=== PATIENT | female | born 1955 | race African-American/Black ===

== ENCOUNTER 2016-12-25 12:16 | Emergency (ER) | payer OTHER ==
[~2016-12-25] VITALS: Ht 165.1 cm; Wt 51.0 kg
[~2016-12-25 12:16] MED LIST: ALBUTEROL INH; ASPI-1073 PO; ATEN-42 PO; GABA-531 PO; MELO-58 PO; PHEN300C6 PO; QVAR INH; SIMV20TA6 PO
[2016-12-25 12:24] VITALS: BP 123/77
[2016-12-25] MEDS ORDERED: KETOROLAC 60MG/2ML VIAL IM ONE (13:45)
[2016-12-25] MEDS ORDERED: TETANUS, DIPHTHERIA, PERTUSSIS VAC/PF 0.5ML (>7YR OLD) IM ONE (16:45)
== END 2016-12-25 18:12 | disposition home or self-care (01) ==
LOC: ER 12:16
DX: S92.515A Nondisplaced fracture of proximal phalanx of left lesser toe(s), initial encounter for closed fracture (principal); S91.112A Laceration without foreign body of left great toe without damage to nail, initial encounter; I11.9 Hypertensive heart disease without heart failure; E78.00 Pure hypercholesterolemia, unspecified; Z79.82 Long term (current) use of aspirin; Z79.899 Other long term (current) drug therapy; Z86.73 Personal history of transient ischemic attack (TIA), and cerebral infarction without residual deficits; Z98.890 Other specified postprocedural states; W01.0XXA Fall on same level from slipping, tripping and stumbling without subsequent striking against object, initial encounter; Y93.01 Activity, walking, marching and hiking; Y92.89 Other specified places as the place of occurrence of the external cause; Y99.8 Other external cause status
CPT/HCPCS: 12002; 73630; 90471; 90715; 96372; 99284; J1885

== ENCOUNTER 2017-01-03 10:00 | Emergency (ER) | payer MEDICAID, OTHER ==
[~2017-01-03] VITALS: Ht 165.1 cm; Wt 96.5 kg
[2017-01-03 12:02] LABS: BASOPHILS % 0.5 % (0.0-2.0); EOSINOPHILS % 5.2 % (0.0-5.0); HEMATOCRIT. 35.7 % (36.0-48.0); HEMOGLOBIN. 11.9 g/dL (12.0-16.0); LYMPHOCYTES % 39.4 % (20.0-50.0); MEAN CORPUSCULAR HEMOGLOBIN 29.7 pg (28.0-32.0); MEAN CORPUSCULAR HGB CONC 33.2 g/dL (31.0-37.0); MEAN CORPUSCULAR VOLUME 89.3 fL (81.0-99.0); MEAN PLATELET VOLUME 7.7 fl (7.4-10.4); MONOCYTES % 7.6 % (2.0-8.0); NEUTROPHILS % 47.3 % (40.0-76.0); PLATELET 270 x1000/uL (130-400); RED CELL DISTRIBUTION WIDTH 13.8 % (11.6-14.6); WHITE BLOOD COUNT 8.5 x1000/uL (4.5-11.0)
[2017-01-03 12:09] LABS: CHLORIDE 106 mEq/L (98-107); INDEX HEMOLYSI 1 (1-3); INDEX ICTERIC 1 (1-4); INDEX LIPEMIC 1 (1-3)
[2017-01-03 12:12] LABS: INR 0.9; PARTIAL THROMBOPLASTIN TIME 27.5 sec (24.0-34.0); PROTHROMBIN TIME 9.7 sec
[2017-01-03 12:17] LABS: ALANINE AMINOTRANSFERASE 22 IU/L (13-61); ALBUMIN 3.5 g/dL (3.4-5.0); ANION GAP 15; CALCIUM 9.5 mg/dL (8.5-10.1); CARBON DIOXIDE 26 mEq/L (21-32); LIPASE 157 IU/L (73-393); UREA NITROGEN BLOOD 11 mg/dL (7-21); eGFR > 60 mL/min (>60)
[2017-01-03 12:18] LABS: TROPONIN I < 0.02 ng/mL (0.00-0.04)
[2017-01-03 13:49] VITALS: BP 122/80
== END 2017-01-03 14:03 | disposition home or self-care (01) ==
LOC: ER 11:02
DX: S91.115D Laceration without foreign body of left lesser toe(s) without damage to nail, subsequent encounter (principal); I11.0 Hypertensive heart disease with heart failure; I50.9 Heart failure, unspecified; E78.00 Pure hypercholesterolemia, unspecified; Z95.818 Presence of other cardiac implants and grafts; Z79.1 Long term (current) use of non-steroidal anti-inflammatories (NSAID); Z79.899 Other long term (current) drug therapy; W22.8XXD Striking against or struck by other objects, subsequent encounter; Y93.89 Activity, other specified; Y92.9 Unspecified place or not applicable; Y99.8 Other external cause status
CPT/HCPCS: 36415; 71010; 80053; 83690; 84484; 85025; 85610; 85730; 93005; 99285; Z7610

== ENCOUNTER 2017-04-03 22:22 | Inpatient (IN) | payer OTHER ==
[~2017-04-03] VITALS: Ht 165.1 cm; Wt 114.3 kg
[~2017-04-03 22:22] MED LIST changes: +LEVO88TA7 PO
[2017-04-04] VITALS (30 sets, daily range): BP systolic 95–152; BP diastolic 49–102
[2017-04-04] MEDS ORDERED: SODIUM CHLORIDE 0.9% 1,000 ML IV ONE ×2 (01:08→02:16)
[2017-04-04 01:58] LABS: HEMATOCRIT. 37.7 % (36.0-48.0); HEMOGLOBIN. 12.6 g/dL (12.0-16.0); MEAN CORPUSCULAR HEMOGLOBIN 31.1 pg (28.0-32.0); MEAN CORPUSCULAR VOLUME 93.4 fL (81.0-99.0); MEAN PLATELET VOLUME 6.9 fl (7.4-10.4); PLATELET 311 x1000/uL (130-400); RED BLOOD CELL COUNT 4.04 mill/uL (4.2-5.4); RED CELL DISTRIBUTION WIDTH 15.8 % (11.6-14.6)
[2017-04-04 02:10] LABS: CARBON DIOXIDE 13 mEq/L (21-32); CHLORIDE 94 mEq/L (98-107); TROPONIN I < 0.02 ng/mL (0.00-0.04)
[2017-04-04] MEDS ORDERED: DEXTROSE 50% WATER 50ML SYRINGE IV ONE ×2 (02:30→08:00)
[2017-04-04] MEDS ORDERED: SODIUM POLYSTYRENE SULFONATE 15 G/60 ML BOT PO ONE (02:30)
[2017-04-04] MEDS ORDERED: INSULIN REGULAR (HUMULIN R) 300UNITS/3ML IV ONE ×2 (02:30→08:00)
[2017-04-04] MEDS ORDERED: CALCIUM CHLORIDE 1GM/10ML SYR IV ONE ×2 (02:30→08:00)
[2017-04-04] MEDS ORDERED: SODIUM BICARBONATE 8.4% 1 MEQ/ML 50ML SYR IV ONE ×2 (02:30→08:00)
[2017-04-04] MEDS ORDERED: PIPERACILLIN/TAZ 3.375G PREMIX 50 ML IV ONE (03:00)
[2017-04-04] MEDS ORDERED: VANCOMYCIN 1 G PREMIX 200 ML IV ONE (03:00)
[2017-04-04 03:21] LABS: PLATELET ESTIMATE NORMAL
[2017-04-04 04:34] LABS: PARTIAL THROMBOPLASTIN TIME 26.6 sec (24.0-34.0); PROTHROMBIN TIME 10.4 sec
[2017-04-04 06:55] LABS: CLARITY URINE CLEAR (CLEAR); COLOR URINE YELLOW (YELLOW); GLUCOSE URINE NEGATIVE (NEGATIVE); KETONES URINE NEGATIVE (NEGATIVE); LEUKOCYTE ESTERASE URINE TRACE (NEGATIVE); NITRITE URINE NEGATIVE (NEGATIVE); OCCULT BLOOD URINE 2+ (NEGATIVE); PROTEIN URINE NEGATIVE (NEGATIVE); SPECIFIC GRAVITY URINE 1.019 (1.005-1.030); UROBILINOGEN URINE 0.2 E.U./dL (0.2-1.0)
[2017-04-04] MEDS ORDERED: DOCUSATE SODIUM 100MG CAPSULE PO PRN (10:45)
[2017-04-04] MEDS ORDERED: HYDROCODONE/ACETAMINOPHEN 5/325MG TABLET PO PRN (10:45)
[2017-04-04] MEDS ORDERED: IPRATROPIUM/ALBUTEROL 0.5-3(2.5)MG/3ML NEB INH PRN (10:45)
[2017-04-04] MEDS ORDERED: ONDANSETRON HCL 4MG/2ML VIAL IV PRN (10:45)
[2017-04-04 12:08] LABS: PHENYTOIN 8.7 ug/mL (10-20)
[2017-04-04 12:28] LABS: BG BASE EXCESS -7.5 mmol/L (-2.0-2.0); BG CARBOXYHEMOGLOBIN 0.9 % (0.5-1.5); BG DEOXYHEMOGLOBIN 3.1 % (0.0-5.0); BG FRACTION INSPIRED OXYGEN 32; BG HCO3 ACT 18.4 mmol/L (22.0-26.0); BG METHEMOGLOBIN 0.3 % (0.0-1.5); BG OXYGEN SATURATION 96.9 % (92.0-98.5); BG OXYHEMOGLOBIN 95.7 % (94.0-97.0); BG PCO2 38.6 mmHg (35.0-45.0); BG PH 7.295 (7.350-7.450); BG SAMPLE SITE LEFT BRACHIAL; BG TOTAL HEMOGLOBIN 12.1 g/dL (12.0-18.0); BG VENT MODE NASAL CANNULA
[2017-04-04 14:54] LABS: AMMONIA < 10 uMol/L (<32)
[2017-04-04] MEDS: PHENYTOIN SODIUM 100MG/2ML VIAL IV SCH ×2 (15:04→21:12)
[2017-04-04] MEDS: LACTULOSE 20G/30ML UDC PO SCH ×2 (15:04→17:43)
[2017-04-04] MEDS: ASPIRIN 81MG EC TABLET PO SCH (15:05)
[2017-04-04] MEDS: LEVOTHYROXINE SODIUM 88MCG TABLET PO SCH (15:06)
[2017-04-04] MEDS: ATENOLOL 25MG TABLET PO SCH (15:07)
[2017-04-04 15:08] LABS: CREATINE KINASE 400 IU/L (26-192); CREATINE KINASE MB FRACTION 13.3 ng/mL (0.5-3.6); T4 FREE 0.64 ng/dL (0.76-1.46); TROPONIN I < 0.02 ng/mL (0.00-0.04)
[2017-04-04] MEDS: ENOXAPARIN 100MG/ML SYR SUBCUT SCH (15:08)
[2017-04-04 15:22] LABS: FOLIC ACID (FOLATE) SERUM 5.6 ng/mL (>5.38)
[2017-04-04] MEDS: GABAPENTIN 300MG CAPSULE PO SCH (17:42)
[2017-04-04 23:21] LABS: CREATINE KINASE 315 IU/L (26-192); CREATINE KINASE MB FRACTION 8.7 ng/mL (0.5-3.6); TROPONIN I < 0.02 ng/mL (0.00-0.04)
[2017-04-05] VITALS (19 sets, daily range): BP systolic 91–125; BP diastolic 47–66
[2017-04-05 05:42] LABS: BASOPHILS % 0.4 % (0.0-2.0); EOSINOPHILS % 3.5 % (0.0-5.0); HEMATOCRIT. 33.2 % (36.0-48.0); HEMOGLOBIN. 11.2 g/dL (12.0-16.0); LYMPHOCYTES % 14.7 % (20.0-50.0); MEAN CORPUSCULAR HEMOGLOBIN 31.2 pg (28.0-32.0); MEAN CORPUSCULAR VOLUME 92.5 fL (81.0-99.0); MEAN PLATELET VOLUME 6.9 fl (7.4-10.4); MONOCYTES % 13.4 % (2.0-8.0); PLATELET 220 x1000/uL (130-400); RED BLOOD CELL COUNT 3.59 mill/uL (4.2-5.4); RED CELL DISTRIBUTION WIDTH 15.8 % (11.6-14.6)
[2017-04-05 06:16] LABS: CARBON DIOXIDE 29 mEq/L (21-32); CHLORIDE 108 mEq/L (98-107)
[2017-04-05] MEDS: ASPIRIN 81MG EC TABLET PO SCH (08:52)
[2017-04-05] MEDS: LEVOTHYROXINE SODIUM 88MCG TABLET PO SCH (08:52)
[2017-04-05] MEDS: GABAPENTIN 300MG CAPSULE PO SCH ×2 (08:52→16:30)
[2017-04-05] MEDS: LACTULOSE 20G/30ML UDC PO SCH ×3 (08:52→16:30)
[2017-04-05] MEDS: PHENYTOIN SODIUM 100MG/2ML VIAL IV SCH ×2 (08:53→21:19)
[2017-04-05] MEDS: ATENOLOL 25MG TABLET PO SCH (08:54)
[2017-04-05] MEDS ORDERED: ASPIRIN 81MG EC TABLET PO SCH (09:00)
[2017-04-05] MEDS ORDERED: POTASSIUM CHLORIDE 20MEQ TABLET SR PO SCH (09:15)
[2017-04-05] MEDS: ENOXAPARIN 100MG/ML SYR SUBCUT SCH (11:57)
[2017-04-05] MEDS ORDERED: NA PHOS,M-B/NA PHOS,DI-BA ENEMA 118ML PR NR (16:15)
[2017-04-05] MEDS: BISACODYL 10MG SUPP PR SCH (17:15)
[2017-04-06] VITALS: BP 138/60
[2017-04-06 04:00] VITALS: BP 101/57
[2017-04-06] MEDS: ACETAMINOPHEN 325MG TABLET PO PRN (04:48)
[2017-04-06] MEDS: LEVOTHYROXINE SODIUM 88MCG TABLET PO SCH (06:50)
[2017-04-06 07:25] LABS: CARBON DIOXIDE 32 mEq/L (21-32); CHLORIDE 108 mEq/L (98-107); PHENYTOIN 12.4 ug/mL (10-20); PHOSPHORUS 1.7 mg/dL (2.5-4.9)
[2017-04-06 08:00] VITALS: BP 102/50
[2017-04-06] MEDS: GABAPENTIN 300MG CAPSULE PO SCH ×3 (09:00→17:44)
[2017-04-06] MEDS: BISACODYL 10MG SUPP PR SCH (09:00)
[2017-04-06] MEDS: LACTULOSE 20G/30ML UDC PO SCH ×3 (09:01→17:44)
[2017-04-06] MEDS: ASPIRIN 81MG EC TABLET PO SCH (09:01)
[2017-04-06] MEDS: ATENOLOL 25MG TABLET PO SCH (09:06)
[2017-04-06] MEDS: PHENYTOIN SODIUM 100MG/2ML VIAL IV SCH (09:06)
[2017-04-06 10:54] LABS: BASOPHILS % 0.4 % (0.0-2.0); EOSINOPHILS % 11.6 % (0.0-5.0); HEMATOCRIT. 25.7 % (36.0-48.0); HEMOGLOBIN. 8.7 g/dL (12.0-16.0); LYMPHOCYTES % 26.3 % (20.0-50.0); MEAN CORPUSCULAR HEMOGLOBIN 31.3 pg (28.0-32.0); MEAN CORPUSCULAR VOLUME 92.4 fL (81.0-99.0); MONOCYTES % 10.1 % (2.0-8.0); NEUTROPHILS % 51.6 % (40.0-76.0); PLATELET 192 x1000/uL (130-400); RED BLOOD CELL COUNT 2.78 mill/uL (4.2-5.4); RED CELL DISTRIBUTION WIDTH 15.8 % (11.6-14.6)
[2017-04-06] MEDS ORDERED: POTASSIUM CHLORIDE 20MEQ TABLET SR PO SCH (11:30)
[2017-04-06] MEDS ORDERED: MAGNESIUM 1 G PREMIX 100 ML IV ONE (11:30)
[2017-04-06] MEDS: PHENYTOIN SODIUM EXTENDED 100MG CAPSULE PO SCH ×2 (11:47→17:44)
[2017-04-06] MEDS: ENOXAPARIN 100MG/ML SYR SUBCUT SCH (11:48)
[2017-04-06 12:00] VITALS: BP 110/71
[2017-04-06 16:00] VITALS: BP 114/58
[2017-04-06] MEDS: AZITHROMYCIN 500 MG in DEXT 5% WATER 250 ML IV SCH (17:44)
[2017-04-06] MEDS: ASCORBIC ACID 500 MG TABLET PO SCH (17:44)
[2017-04-06] MEDS: CEFTRIAXONE 1 G PREMIX 50 ML IV SCH (17:44)
[2017-04-06] MEDS: MULTIVITAMINS,THER W-MINERALS TABLET PO SCH (17:44)
[2017-04-06 20:00] VITALS: BP 105/55
[2017-04-07] VITALS: BP 121/66
[2017-04-07] MEDS: ACETAMINOPHEN 325MG TABLET PO PRN ×2 (03:59→20:58)
[2017-04-07 04:00] VITALS: BP 121/61
[2017-04-07] MEDS: PHENYTOIN SODIUM EXTENDED 100MG CAPSULE PO SCH ×2 (06:00→17:12)
[2017-04-07] MEDS: LEVOTHYROXINE SODIUM 88MCG TABLET PO SCH (06:32)
[2017-04-07 06:53] LABS: BASOPHILS % 0.3 % (0.0-2.0); EOSINOPHILS % 12.2 % (0.0-5.0); HEMOGLOBIN. 8.4 g/dL (12.0-16.0); LYMPHOCYTES % 26.7 % (20.0-50.0); MEAN CORPUSCULAR VOLUME 92.7 fL (81.0-99.0); MEAN PLATELET VOLUME 6.7 fl (7.4-10.4); MONOCYTES % 8.2 % (2.0-8.0); NEUTROPHILS % 52.6 % (40.0-76.0); PLATELET 196 x1000/uL (130-400); RED CELL DISTRIBUTION WIDTH 15.6 % (11.6-14.6)
[2017-04-07 07:49] VITALS: BP 113/58
[2017-04-07 07:55] LABS: CARBON DIOXIDE 33 mEq/L (21-32); CHLORIDE 105 mEq/L (98-107); PHOSPHORUS 1.8 mg/dL (2.5-4.9)
[2017-04-07] MEDS: ASCORBIC ACID 500 MG TABLET PO SCH (08:23)
[2017-04-07] MEDS: LACTULOSE 20G/30ML UDC PO SCH ×3 (08:23→17:11)
[2017-04-07] MEDS: MULTIVITAMINS,THER W-MINERALS TABLET PO SCH (08:23)
[2017-04-07] MEDS: CEFTRIAXONE 1 G PREMIX 50 ML IV SCH (08:23)
[2017-04-07] MEDS: ASPIRIN 81MG EC TABLET PO SCH (08:23)
[2017-04-07] MEDS: ATENOLOL 25MG TABLET PO SCH (08:24)
[2017-04-07] MEDS: GABAPENTIN 300MG CAPSULE PO SCH ×2 (08:42→17:12)
[2017-04-07] MEDS: AZITHROMYCIN 500 MG in DEXT 5% WATER 250 ML IV SCH (09:34)
[2017-04-07] MEDS: BISACODYL 10MG SUPP PR SCH (09:34)
[2017-04-07] MEDS ORDERED: POTASSIUM CHLORIDE 20MEQ TABLET SR PO SCH (10:00)
[2017-04-07] MEDS ORDERED: POTASSIUM PHOS,M-BASIC-D-BASIC 10 MMOL in DEXT 5% WATER 246.6667 ML IV SCH (11:00)
[2017-04-07 11:29] LABS: TOTAL IRON BINDING CAPACITY 124 ug/dL (250-450)
[2017-04-07 11:57] VITALS: BP 112/61
[2017-04-07] MEDS: ENOXAPARIN 100MG/ML SYR SUBCUT SCH (12:36)
[2017-04-07 12:41] LABS: BG CARBOXYHEMOGLOBIN 0.4 % (0.5-1.5); BG DEOXYHEMOGLOBIN 10.4 % (0.0-5.0); BG FRACTION INSPIRED OXYGEN 21; BG HCO3 ACT 27.1 mmol/L (22.0-26.0); BG METHEMOGLOBIN 0.2 % (0.0-1.5); BG OXYGEN SATURATION 89.5 % (92.0-98.5); BG PH 7.459 (7.350-7.450); BG PO2 57.5 mmHg (75.0-100.0); BG SAMPLE SITE RIGHT RADIAL; BG TOTAL HEMOGLOBIN 9.4 g/dL (12.0-18.0); BG VENT MODE ROOM AIR
[2017-04-07 16:00] VITALS: BP 120/61
[2017-04-07 20:00] VITALS: BP 106/55
[2017-04-08] VITALS: BP 100/52
[2017-04-08 04:00] VITALS: BP 110/52
[2017-04-08 06:20] LABS: CARBON DIOXIDE 29 mEq/L (21-32); CHLORIDE 104 mEq/L (98-107); PHOSPHORUS 2.3 mg/dL (2.5-4.9)
[2017-04-08 06:21] LABS: BASOPHILS % 0.3 % (0.0-2.0); EOSINOPHILS % 12.1 % (0.0-5.0); HEMATOCRIT. 26.4 % (36.0-48.0); HEMOGLOBIN. 8.9 g/dL (12.0-16.0); LYMPHOCYTES % 29.9 % (20.0-50.0); MEAN CORPUSCULAR HEMOGLOBIN 31.2 pg (28.0-32.0); MEAN CORPUSCULAR VOLUME 92.1 fL (81.0-99.0); MONOCYTES % 8.4 % (2.0-8.0); NEUTROPHILS % 49.3 % (40.0-76.0); PLATELET 230 x1000/uL (130-400); RED BLOOD CELL COUNT 2.86 mill/uL (4.2-5.4); RED CELL DISTRIBUTION WIDTH 15.6 % (11.6-14.6)
[2017-04-08] MEDS: PHENYTOIN SODIUM EXTENDED 100MG CAPSULE PO SCH (06:44)
[2017-04-08] MEDS: LEVOTHYROXINE SODIUM 88MCG TABLET PO SCH (06:44)
[2017-04-08 08:00] VITALS: BP 113/68
[2017-04-08] MEDS: LACTULOSE 20G/30ML UDC PO SCH (08:53)
[2017-04-08] MEDS: BISACODYL 10MG SUPP PR SCH (08:53)
[2017-04-08] MEDS: MULTIVITAMINS,THER W-MINERALS TABLET PO SCH (08:58)
[2017-04-08] MEDS: ASPIRIN 81MG EC TABLET PO SCH (08:58)
[2017-04-08] MEDS: ASCORBIC ACID 500 MG TABLET PO SCH (08:58)
[2017-04-08] MEDS: ATENOLOL 25MG TABLET PO SCH (08:58)
[2017-04-08] MEDS: CEFTRIAXONE 1 G PREMIX 50 ML IV SCH (08:58)
[2017-04-08] MEDS: GABAPENTIN 300MG CAPSULE PO SCH (08:58)
[2017-04-08] MEDS ORDERED: ENOXAPARIN 120MG/0.8ML SYR SUBCUT SCH (09:00)
[2017-04-08] MEDS: AZITHROMYCIN 500 MG in DEXT 5% WATER 250 ML IV SCH (10:47)
[2017-04-08 11:39] VITALS: BP 109/63
[2017-04-08] MEDS ORDERED: POTASSIUM PHOS,M-BASIC-D-BASIC 15 MMOL in DEXT 5% WATER 245 ML IV NR (12:30)
[2017-04-08 14:52] VITALS: BP 109/63
== END 2017-04-08 15:20 | disposition home health service (06) | DRG 45 ==
LOC: ER 22:33 → CANRESERV 04-04 06:55 → ENRESERV 04-04 06:55 → EDBEDREQSVC 04-04 07:53 → ENRESERV 04-04 07:55 → CVICU 04-04 10:52 → 8WST 04-05 16:03
PROVIDERS: ADMIT Internal Medicine; ATTEND Internal Medicine
PROC: 05HN33Z Insertion of Infusion Device into Left Internal Jugular Vein, Percutaneous Approach (ICD-10-PCS; 2017-04-04)
PROC: B544ZZA Ultrasonography of Left Jugular Veins, Guidance (ICD-10-PCS; 2017-04-04)
PROC: 05H933Z Insertion of Infusion Device into Right Brachial Vein, Percutaneous Approach (ICD-10-PCS; principal; 2017-04-06)
PROC: B54MZZA Ultrasonography of Right Upper Extremity Veins, Guidance (ICD-10-PCS; 2017-04-06)
PROC: 30233N1 Transfusion of Nonautologous Red Blood Cells into Peripheral Vein, Percutaneous Approach (ICD-10-PCS; 2017-04-06)
DX: I63.9 Cerebral infarction, unspecified (principal); G92 Toxic encephalopathy; N17.9 Acute kidney failure, unspecified; J18.9 Pneumonia, unspecified organism; I82.432 Acute embolism and thrombosis of left popliteal vein; K59.2 Neurogenic bowel, not elsewhere classified; R65.10 Systemic inflammatory response syndrome (SIRS) of non-infectious origin without acute organ dysfunction; E87.5 Hyperkalemia; E86.0 Dehydration; J44.0 Chronic obstructive pulmonary disease with (acute) lower respiratory infection; E11.22 Type 2 diabetes mellitus with diabetic chronic kidney disease; I12.9 Hypertensive chronic kidney disease with stage 1 through stage 4 chronic kidney disease, or unspecified chronic kidney disease; I69.354 Hemiplegia and hemiparesis following cerebral infarction affecting left non-dominant side; E87.1 Hypo-osmolality and hyponatremia; N18.9 Chronic kidney disease, unspecified; G40.909 Epilepsy, unspecified, not intractable, without status epilepticus; N31.9 Neuromuscular dysfunction of bladder, unspecified; E03.9 Hypothyroidism, unspecified; R13.10 Dysphagia, unspecified; N13.9 Obstructive and reflux uropathy, unspecified; E66.01 Morbid (severe) obesity due to excess calories; D64.9 Anemia, unspecified; E83.42 Hypomagnesemia; E78.00 Pure hypercholesterolemia, unspecified; E78.5 Hyperlipidemia, unspecified; E83.39 Other disorders of phosphorus metabolism; E87.6 Hypokalemia; Z79.82 Long term (current) use of aspirin; Z68.41 Body mass index [BMI] 40.0-44.9, adult; Z79.899 Other long term (current) drug therapy; Z82.3 Family history of stroke; Z95.5 Presence of coronary angioplasty implant and graft
CPT/HCPCS: 36415; 36556; 36569; 36600; 51702; 70551; 71010; 72141; 74000; 76770; 76937; 80048; 80053; 80185; 81001; 82140; 82270; 82375; 82550; 82553; 82607; 82746; 82805; 82962; 83036; 83540; 83550; 83605; 83735; 84100; 84439; 84443; 84481; 84484; 85025; 85610; 85730; 87040; 92523; 92610; 93005; 93306; 93970; 96361; 96365; 96366; 96367; 96375; 96376; 97163; 97167; 97530; 99291; C1725; C1752; J0456; J0696; J1165; J1650; J1815; J2543; J3370; J3475; J3490; J7030; J7040; J7050; J7060

== ENCOUNTER 2017-04-13 00:42 | Emergency (ER) | payer OTHER ==
[~2017-04-13] VITALS: Ht 165.1 cm; Wt 95.0 kg
[2017-04-13] MEDS ORDERED: LEVOFLOXACIN 250MG TABLET PO ONE (01:30)
[2017-04-13] MEDS ORDERED: PHENAZOPYRIDINE HCL 100MG TABLET PO ONE (01:30)
[2017-04-13 02:13] LABS: CLARITY URINE CLEAR (CLEAR); COLOR URINE YELLOW (YELLOW); GLUCOSE URINE NEGATIVE (NEGATIVE); KETONES URINE NEGATIVE (NEGATIVE); LEUKOCYTE ESTERASE URINE 2+ (NEGATIVE); NITRITE URINE NEGATIVE (NEGATIVE); OCCULT BLOOD URINE 2+ (NEGATIVE); PROTEIN URINE 1+ (NEGATIVE); SPECIFIC GRAVITY URINE 1.011 (1.005-1.030); UROBILINOGEN URINE 0.2 E.U./dL (0.2-1.0)
[2017-04-13 05:45] VITALS: BP 106/58
== END 2017-04-13 05:57 | disposition home or self-care (01) ==
LOC: ER 00:50
DX: N99.522 Malfunction of incontinent external stoma of urinary tract (principal); T83.011A Breakdown (mechanical) of indwelling urethral catheter, initial encounter; I50.9 Heart failure, unspecified; I12.9 Hypertensive chronic kidney disease with stage 1 through stage 4 chronic kidney disease, or unspecified chronic kidney disease; N18.9 Chronic kidney disease, unspecified; R30.0 Dysuria; Z79.82 Long term (current) use of aspirin
CPT/HCPCS: 51702; 81001; 87086; 99284; Z7610; A4315

== ENCOUNTER 2017-07-01 23:49 | Emergency (ER) | payer OTHER ==
[~2017-07-01] VITALS: Ht 165.1 cm; Wt 96.0 kg
[~2017-07-01 23:49] MED LIST changes: +MELO-106 PO; -MELO-58 PO
[2017-07-02 00:20] VITALS: BP 87/56
[2017-07-02] MEDS ORDERED: MORPHINE SULFATE 10 MG/ML CPJ IV ONE (02:10)
[2017-07-02] MEDS ORDERED: ONDANSETRON HCL 4MG/2ML VIAL IV ONE (02:10)
== END 2017-07-02 03:30 | disposition home or self-care (01) ==
LOC: ER 23:49
DX: R33.9 Retention of urine, unspecified (principal); I50.9 Heart failure, unspecified; Z86.73 Personal history of transient ischemic attack (TIA), and cerebral infarction without residual deficits
CPT/HCPCS: 51702; 99284; Z7610; 99283; A4315

== ENCOUNTER 2017-11-17 11:20 | Emergency (ER) | payer MEDICAID, OTHER ==
[~2017-11-17] VITALS: Ht 152.4 cm; Wt 86.0 kg
[2017-11-17 16:45] LABS: BASOPHILS % 0.7 % (0.0-2.0); EOSINOPHILS % 3.5 % (0.0-5.0); HEMATOCRIT. 34.4 % (36.0-48.0); HEMOGLOBIN. 11.6 g/dL (12.0-16.0); LYMPHOCYTES % 45.3 % (20.0-50.0); MEAN CORPUSCULAR HEMOGLOBIN 31.7 pg (28.0-32.0); MEAN CORPUSCULAR VOLUME 93.9 fL (81.0-99.0); MEAN PLATELET VOLUME 7.3 fl (7.4-10.4); MONOCYTES % 7.9 % (2.0-8.0); NEUTROPHILS % 42.6 % (40.0-76.0); PLATELET 297 x1000/uL (130-400); RED BLOOD CELL COUNT 3.66 mill/uL (4.2-5.4); RED CELL DISTRIBUTION WIDTH 14.9 % (11.6-14.6)
[2017-11-17 16:47] LABS: CHLORIDE 109 mEq/L (98-107)
[2017-11-17 18:57] LABS: CLARITY URINE CLEAR (CLEAR); COLOR URINE YELLOW (YELLOW); KETONES URINE NEGATIVE (NEGATIVE); LEUKOCYTE ESTERASE URINE TRACE (NEGATIVE); NITRITE URINE NEGATIVE (NEGATIVE); OCCULT BLOOD URINE NEGATIVE (NEGATIVE); PH URINE 6.5 (4.5-8.0); PROTEIN URINE NEGATIVE (NEGATIVE); SPECIFIC GRAVITY URINE 1.019 (1.005-1.030)
[2017-11-17] MEDS ORDERED: ACETAMINOPHEN 325MG TABLET PO ONE (19:15)
[2017-11-17 20:00] VITALS: BP 150/68
== END 2017-11-17 20:25 | disposition home or self-care (01) ==
LOC: ER 14:18
DX: M79.604 Pain in right leg (principal); I50.9 Heart failure, unspecified; R42 Dizziness and giddiness; R56.9 Unspecified convulsions; Z79.82 Long term (current) use of aspirin; Z86.73 Personal history of transient ischemic attack (TIA), and cerebral infarction without residual deficits; Z86.718 Personal history of other venous thrombosis and embolism
CPT/HCPCS: 36415; 80053; 81003; 85025; 85610; 93971; 99285

== ENCOUNTER 2018-02-28 10:11 | Emergency (ER) | payer MEDICAID ==
[~2018-02-28] VITALS: Ht 167.6 cm; Wt 95.0 kg
[~2018-02-28 10:11] MED LIST changes: +ATOR10TA PO; +OMEP40CA34 MT; +WARF-53 MT
[2018-02-28 11:53] LABS: BASOPHILS % 0.4 % (0.0-2.0); EOSINOPHILS % 5.2 % (0.0-5.0); HEMATOCRIT. 36.7 % (36.0-48.0); HEMOGLOBIN. 12.6 g/dL (12.0-16.0); LYMPHOCYTES % 37.6 % (20.0-50.0); MEAN CORPUSCULAR HEMOGLOBIN 31.8 pg (28.0-32.0); MEAN CORPUSCULAR VOLUME 92.9 fL (81.0-99.0); MEAN PLATELET VOLUME 7.4 fl (7.4-10.4); MONOCYTES % 7.7 % (2.0-8.0); NEUTROPHILS % 49.1 % (40.0-76.0); PLATELET 268 x1000/uL (130-400); RED BLOOD CELL COUNT 3.95 mill/uL (4.2-5.4); RED CELL DISTRIBUTION WIDTH 13.8 % (11.6-14.6)
[2018-02-28 11:59] LABS: CHLORIDE 104 mEq/L (98-107)
[2018-02-28 12:02] LABS: INR 2.6; PROTHROMBIN TIME 26.7 sec (9.4-11.6)
[2018-02-28 13:22] VITALS: BP 142/76
== END 2018-02-28 13:24 | disposition home or self-care (01) ==
LOC: ER 10:11
DX: R07.89 Other chest pain (principal); K21.9 Gastro-esophageal reflux disease without esophagitis; J44.9 Chronic obstructive pulmonary disease, unspecified; I10 Essential (primary) hypertension; E78.00 Pure hypercholesterolemia, unspecified; G40.909 Epilepsy, unspecified, not intractable, without status epilepticus; Z86.73 Personal history of transient ischemic attack (TIA), and cerebral infarction without residual deficits
CPT/HCPCS: 36415; 71045; 80053; 83880; 84484; 85025; 85610; 85730; 93005; 99285

== ENCOUNTER 2018-03-28 00:28 | Emergency (ER) | payer MEDICAID ==
[~2018-03-28] VITALS: Ht 165.1 cm; Wt 97.0 kg
[2018-03-28] MEDS ORDERED: ASPIRIN 81MG TABLET PO ONE (02:15)
[2018-03-28] MEDS ORDERED: NITROGLYCERIN 0.4MG TABLET SL SL PRN (02:15)
[2018-03-28 02:44] LABS: BASOPHILS % 0.8 % (0.0-2.0); EOSINOPHILS % 5.6 % (0.0-5.0); HEMATOCRIT. 33.4 % (36.0-48.0); HEMOGLOBIN. 11.2 g/dL (12.0-16.0); LYMPHOCYTES % 39.1 % (20.0-50.0); MEAN CORPUSCULAR HEMOGLOBIN 31.6 pg (28.0-32.0); MEAN CORPUSCULAR VOLUME 94.5 fL (81.0-99.0); MEAN PLATELET VOLUME 7.4 fl (7.4-10.4); MONOCYTES % 10.2 % (2.0-8.0); NEUTROPHILS % 44.3 % (40.0-76.0); PLATELET 261 x1000/uL (130-400); RED BLOOD CELL COUNT 3.54 mill/uL (4.2-5.4); RED CELL DISTRIBUTION WIDTH 14.9 % (11.6-14.6)
[2018-03-28 02:45] LABS: CHLORIDE 109 mEq/L (98-107)
[2018-03-28 02:47] LABS: INR 1.1; PARTIAL THROMBOPLASTIN TIME 32.9 sec (23.4-31.0); PROTHROMBIN TIME 11.2 sec (9.4-11.6)
[2018-03-28 05:13] LABS: CLARITY URINE CLEAR (CLEAR); COLOR URINE YELLOW (YELLOW); KETONES URINE TRACE (NEGATIVE); LEUKOCYTE ESTERASE URINE TRACE (NEGATIVE); NITRITE URINE NEGATIVE (NEGATIVE); OCCULT BLOOD URINE NEGATIVE (NEGATIVE); PROTEIN URINE NEGATIVE (NEGATIVE); SPECIFIC GRAVITY URINE 1.025 (1.005-1.030)
[2018-03-28 05:58] VITALS: BP 112/69
== END 2018-03-28 06:06 | disposition home or self-care (01) ==
LOC: ER 01:57 → CANBEDREQ 07:13 → SUPCPDRO 09:52
DX: R07.89 Other chest pain (principal); R60.0 Localized edema; G40.909 Epilepsy, unspecified, not intractable, without status epilepticus; I51.9 Heart disease, unspecified; Z79.82 Long term (current) use of aspirin; Z87.891 Personal history of nicotine dependence; Z86.73 Personal history of transient ischemic attack (TIA), and cerebral infarction without residual deficits
CPT/HCPCS: 36415; 71045; 80053; 81003; 83880; 84484; 85025; 85610; 85730; 93005; 99285; C1893; Z7610

== ENCOUNTER 2018-05-14 12:28 | Emergency (ER) | payer MEDICAID ==
[~2018-05-14] VITALS: Ht 175.3 cm; Wt 96.0 kg
[2018-05-14] MEDS ORDERED: ONDANSETRON HCL 4MG/2ML VIAL IV STA (13:43)
[2018-05-14] MEDS ORDERED: KETOROLAC 30MG/ML VIAL IV STA (13:43)
[2018-05-14] MEDS ORDERED: MORPHINE SULFATE 4 MG/ML CPJ (NOT FOR IM USE) IV STA (13:43)
[2018-05-14] MEDS ORDERED: KETOROLAC 30MG/ML VIAL IM ONE (14:30)
[2018-05-14] MEDS ORDERED: MORPHINE SULFATE 10 MG/ML CPJ IM ONE (14:30)
[2018-05-14 15:12] LABS: BASOPHILS % 0.5 % (0.0-2.0); EOSINOPHILS % 3.6 % (0.0-5.0); HEMATOCRIT. 35.2 % (36.0-48.0); HEMOGLOBIN. 11.9 g/dL (12.0-16.0); LYMPHOCYTES % 34.7 % (20.0-50.0); MEAN CORPUSCULAR HEMOGLOBIN 31.9 pg (28.0-32.0); MEAN CORPUSCULAR VOLUME 94.2 fL (81.0-99.0); MEAN PLATELET VOLUME 7.3 fl (7.4-10.4); MONOCYTES % 7.8 % (2.0-8.0); NEUTROPHILS % 53.4 % (40.0-76.0); PLATELET 282 x1000/uL (130-400); RED BLOOD CELL COUNT 3.73 mill/uL (4.2-5.4); RED CELL DISTRIBUTION WIDTH 15.1 % (11.6-14.6)
[2018-05-14 15:18] LABS: CHLORIDE 107 mEq/L (98-107)
[2018-05-14 15:21] LABS: PARTIAL THROMBOPLASTIN TIME 28.8 sec (23.4-31.0); PROTHROMBIN TIME 10.1 sec (9.1-11.1)
[2018-05-14 17:30] VITALS: BP 130/62
== END 2018-05-14 17:36 | disposition home or self-care (01) ==
LOC: ER 13:16
DX: S93.402A Sprain of unspecified ligament of left ankle, initial encounter (principal); M25.562 Pain in left knee; W01.0XXA Fall on same level from slipping, tripping and stumbling without subsequent striking against object, initial encounter; Y93.89 Activity, other specified; Y92.89 Other specified places as the place of occurrence of the external cause; Z86.73 Personal history of transient ischemic attack (TIA), and cerebral infarction without residual deficits; G40.909 Epilepsy, unspecified, not intractable, without status epilepticus
CPT/HCPCS: 36415; 71045; 73560; 73610; 80053; 80185; 83880; 84484; 85025; 85610; 85730; 93005; 96372; 99285; J1885; J2270; J2405; Z7610

== ENCOUNTER 2018-05-23 08:34 | Inpatient (IN) | payer MEDICAID ==
[~2018-05-23] VITALS: Ht 167.6 cm; Wt 101.2 kg
[2018-05-23] MEDS ORDERED: ASPIRIN 325MG EC TABLET PO ONE (09:15)
[2018-05-23 09:48] LABS: BASOPHILS % 0.5 % (0.0-2.0); EOSINOPHILS % 3.8 % (0.0-5.0); HEMATOCRIT. 37.4 % (36.0-48.0); HEMOGLOBIN. 12.3 g/dL (12.0-16.0); LYMPHOCYTES % 31.9 % (20.0-50.0); MEAN CORPUSCULAR HEMOGLOBIN 31.9 pg (28.0-32.0); MEAN CORPUSCULAR VOLUME 96.6 fL (81.0-99.0); MEAN PLATELET VOLUME 7.4 fl (7.4-10.4); MONOCYTES % 6.9 % (2.0-8.0); NEUTROPHILS % 56.9 % (40.0-76.0); PLATELET 320 x1000/uL (130-400); RED BLOOD CELL COUNT 3.87 mill/uL (4.2-5.4); RED CELL DISTRIBUTION WIDTH 14.6 % (11.6-14.6)
[2018-05-23 09:53] LABS: CHLORIDE 106 mEq/L (98-107)
[2018-05-23 10:00] LABS: D-DIMER 0.21 mg/L FEU (<0.50); PARTIAL THROMBOPLASTIN TIME 31.6 sec (23.4-31.0); PROTHROMBIN TIME 10.1 sec (9.1-11.1)
[2018-05-23] MEDS ORDERED: MORPHINE SULFATE 4 MG/ML CPJ (NOT FOR IM USE) IV STA (12:32)
[2018-05-23 13:44] LABS: CLARITY URINE CLEAR (CLEAR); COLOR URINE YELLOW (YELLOW); KETONES URINE NEGATIVE (NEGATIVE); LEUKOCYTE ESTERASE URINE NEGATIVE (NEGATIVE); NITRITE URINE NEGATIVE (NEGATIVE); OCCULT BLOOD URINE NEGATIVE (NEGATIVE); PH URINE 6.5 (4.5-8.0); PROTEIN URINE NEGATIVE (NEGATIVE); SPECIFIC GRAVITY URINE 1.012 (1.005-1.030); UROBILINOGEN URINE 0.2 E.U./dL (0.2-1.0)
[2018-05-23] MEDS ORDERED: GUAIFENESIN 200MG/10ML SUGAR FREE UDC PO PRN (14:45)
[2018-05-23] MEDS ORDERED: MORPHINE SULFATE 10 MG/ML CPJ IM ONE (14:45)
[2018-05-23] MEDS ORDERED: CLONIDINE 0.1MG TABLET PO PRN (14:45)
[2018-05-23] MEDS ORDERED: DOCUSATE SODIUM 100MG CAPSULE PO PRN (14:45)
[2018-05-23] MEDS ORDERED: ONDANSETRON HCL 4MG/2ML INJ IV PRN (14:45)
[2018-05-23] MEDS ORDERED: HYDROCODONE/ACETAMINOPHEN 5/325MG TABLET PO PRN (14:45)
[2018-05-23] MEDS ORDERED: IOHEXOL-350 100 ML BOTTLE ONE (16:11)
[2018-05-23 21:15] VITALS: BP 108/42
[2018-05-23] MEDS ORDERED: RIVA20TA PO (21:53)
[2018-05-23] MEDS: RIVAROXABAN 20 MG TABLET PO SCH (22:13)
[2018-05-23] MEDS: PHENYTOIN SODIUM EXTENDED 100MG CAPSULE PO SCH (22:13)
[2018-05-23 23:25] VITALS: BP 108/42
[2018-05-23 23:47] VITALS: BP 113/49
[2018-05-23 23:56] LABS: CREATINE KINASE 100 IU/L (26-192); CREATINE KINASE MB FRACTION < 1.0 ng/mL (0.5-3.6)
[2018-05-24 04:03] VITALS: BP 92/45
[2018-05-24 05:45] LABS: BASOPHILS % 0.4 % (0.0-2.0); EOSINOPHILS % 4.1 % (0.0-5.0); HEMATOCRIT. 32.2 % (36.0-48.0); LYMPHOCYTES % 38.8 % (20.0-50.0); MEAN CORPUSCULAR HEMOGLOBIN 32.7 pg (28.0-32.0); MEAN CORPUSCULAR VOLUME 95.3 fL (81.0-99.0); MEAN PLATELET VOLUME 7.8 fl (7.4-10.4); MONOCYTES % 9.2 % (2.0-8.0); NEUTROPHILS % 47.5 % (40.0-76.0); PLATELET 259 x1000/uL (130-400); RED BLOOD CELL COUNT 3.38 mill/uL (4.2-5.4); RED CELL DISTRIBUTION WIDTH 14.5 % (11.6-14.6)
[2018-05-24 06:32] LABS: CHLORIDE 106 mEq/L (98-107)
[2018-05-24 06:46] LABS: CREATINE KINASE 93 IU/L (26-192); HDL CHOLESTEROL 74 mg/dL (40-59); LDL CHOLESTEROL 136 mg/dL (5-100)
[2018-05-24 06:50] LABS: CREATINE KINASE MB FRACTION < 1.0 ng/mL (0.5-3.6)
[2018-05-24] MEDS ORDERED: REGADENOSON 0.4 MG/5 ML IV SCH (07:45)
[2018-05-24 08:00] VITALS: BP 105/51
[2018-05-24] MEDS ORDERED: REGADENOSON 0.4 MG/5 ML IV ONE (10:25)
[2018-05-24 12:00] VITALS: BP 133/66
[2018-05-24] MEDS: PHENYTOIN SODIUM EXTENDED 100MG CAPSULE PO SCH ×2 (13:30→19:12)
[2018-05-24] MEDS: ACETAMINOPHEN 325MG TABLET PO PRN ×2 (13:30→21:48)
[2018-05-24] MEDS: AMLODIPINE 10MG TABLET PO SCH (13:31)
[2018-05-24 14:51] VITALS: BP 160/82
[2018-05-24 16:00] VITALS: BP 107/54
[2018-05-24 16:36] LABS: CREATINE KINASE 94 IU/L (26-192); CREATINE KINASE MB FRACTION < 1.0 ng/mL (0.5-3.6)
[2018-05-24] MEDS: RIVAROXABAN 20 MG TABLET PO SCH (19:16)
[2018-05-24 20:00] VITALS: BP 95/50
[2018-05-24 23:45] LABS: CREATINE KINASE 103 IU/L (26-192)
[2018-05-24 23:46] LABS: CREATINE KINASE MB FRACTION < 1.0 ng/mL (0.5-3.6)
[2018-05-25] VITALS: BP 106/43
[2018-05-25] MEDS: PHENYTOIN SODIUM EXTENDED 100MG CAPSULE PO SCH ×2 (00:18→08:59)
[2018-05-25 04:00] VITALS: BP 96/55
[2018-05-25 06:36] LABS: CREATINE KINASE 93 IU/L (26-192)
[2018-05-25 06:37] LABS: CREATINE KINASE MB FRACTION < 1.0 ng/mL (0.5-3.6)
[2018-05-25 08:00] VITALS: BP 126/64
[2018-05-25] MEDS: AMLODIPINE 10MG TABLET PO SCH (08:59)
[2018-05-25 11:02] VITALS: BP 126/64
[2018-05-25] MEDS ORDERED: ATORVASTATIN CALCIUM 20MG TABLET PO SCH (21:00)
== END 2018-05-25 11:30 | disposition home or self-care (01) | DRG 243 ==
LOC: ER 11:00 → 6WST 12:06 → EDBEDREQ 12:11 → EDBEDREQTM 12:11 → ENRESERV 19:25
PROVIDERS: ADMIT Hospitalist; ATTEND Hospitalist
PROC: 02HV33Z Insertion of Infusion Device into Superior Vena Cava, Percutaneous Approach (ICD-10-PCS; principal; 2018-05-23)
PROC: B5181ZA Fluoroscopy of Superior Vena Cava using Low Osmolar Contrast, Guidance (ICD-10-PCS; 2018-05-23)
PROC: B548ZZA Ultrasonography of Superior Vena Cava, Guidance (ICD-10-PCS; 2018-05-23)
DX: K21.9 Gastro-esophageal reflux disease without esophagitis (principal); E78.5 Hyperlipidemia, unspecified; I10 Essential (primary) hypertension; G40.909 Epilepsy, unspecified, not intractable, without status epilepticus; I25.10 Atherosclerotic heart disease of native coronary artery without angina pectoris; Z79.01 Long term (current) use of anticoagulants; Z86.711 Personal history of pulmonary embolism; Z79.82 Long term (current) use of aspirin; Z79.899 Other long term (current) drug therapy; Z86.73 Personal history of transient ischemic attack (TIA), and cerebral infarction without residual deficits; Z98.1 Arthrodesis status; Z95.5 Presence of coronary angioplasty implant and graft; Z88.5 Allergy status to narcotic agent
CPT/HCPCS: 36415; 36569; 71045; 71275; 76937; 77001; 78452; 80053; 80061; 80185; 81003; 82550; 82553; 83036; 83880; 84439; 84443; 84484; 85025; 85379; 85610; 85730; 93005; 93017; 93306; 93970; 96372; 96374; 96375; 99285; A9500; C1725; C1769; J2270; J2405; J2785; Q9967

== ENCOUNTER 2018-07-28 18:21 | Emergency (ER) | payer MEDICAID ==
[~2018-07-28] VITALS: Ht 162.6 cm; Wt 98.0 kg
[~2018-07-28 18:21] MED LIST changes: -ASPI-1073 PO; -ATEN-42 PO; -MELO-106 PO; +RIVA20TA PO
[2018-07-28 19:20] VITALS: BP 150/71
== END 2018-07-28 19:19 | disposition home or self-care (01) ==
LOC: ER 18:21
DX: L30.9 Dermatitis, unspecified (principal); I10 Essential (primary) hypertension; Z86.73 Personal history of transient ischemic attack (TIA), and cerebral infarction without residual deficits
CPT/HCPCS: 99282

== ENCOUNTER 2018-08-15 07:01 | Emergency (ER) | payer MEDICAID ==
[~2018-08-15] VITALS: Ht 165.1 cm; Wt 100.0 kg
[2018-08-15] MEDS ORDERED: MORPHINE SULFATE 4 MG/ML CPJ (NOT FOR IM USE) IV STA (07:56)
[2018-08-15 08:58] LABS: HEMATOCRIT. 36.8 % (36.0-48.0); HEMOGLOBIN. 12.3 g/dL (12.0-16.0); MEAN CORPUSCULAR HEMOGLOBIN 31.8 pg (28.0-32.0); MEAN CORPUSCULAR VOLUME 95.4 fL (81.0-99.0); MEAN PLATELET VOLUME 7.7 fl (7.4-10.4); PLATELET 294 x1000/uL (130-400); RED BLOOD CELL COUNT 3.86 mill/uL (4.2-5.4); RED CELL DISTRIBUTION WIDTH 13.9 % (11.6-14.6)
[2018-08-15 09:03] LABS: CHLORIDE 108 mEq/L (98-107)
[2018-08-15] MEDS ORDERED: OXYCODONE HCL/ACETAMINOPHEN 5/325MG TABLET PO ONE (09:15)
[2018-08-15] MEDS ORDERED: ASPIRIN 325MG EC TABLET PO ONE (09:30)
[2018-08-15 10:04] LABS: PLATELET ESTIMATE NORMAL
[2018-08-15] MEDS ORDERED: ACETAMINOPHEN 325MG TABLET PO PRN ×2 (11:15→16:45)
[2018-08-15] MEDS ORDERED: KETOROLAC 30MG/ML VIAL IV PRN ×2 (11:15→16:45)
[2018-08-15] MEDS ORDERED: OXYCODONE HCL/ACETAMINOPHEN 5/325MG TABLET PO PRN ×2 (11:15→16:45)
[2018-08-15 11:55] LABS: CREATINE KINASE 136 IU/L (26-192)
[2018-08-15 11:56] LABS: CREATINE KINASE MB FRACTION < 1.0 ng/mL (0.5-3.6)
[2018-08-15 13:05] LABS: CLARITY URINE CLEAR (CLEAR); COLOR URINE YELLOW (YELLOW); KETONES URINE NEGATIVE (NEGATIVE); LEUKOCYTE ESTERASE URINE NEGATIVE (NEGATIVE); NITRITE URINE NEGATIVE (NEGATIVE); OCCULT BLOOD URINE NEGATIVE (NEGATIVE); PROTEIN URINE NEGATIVE (NEGATIVE); SPECIFIC GRAVITY URINE 1.016 (1.005-1.030); UROBILINOGEN URINE 0.2 E.U./dL (0.2-1.0)
[2018-08-15 13:25] LABS: *AMPHETAMINES SCREEN URINE NEGATIVE (NEGATIVE); *BARBITURATES SCREEN URINE NEGATIVE (NEGATIVE)
[2018-08-15 13:26] LABS: *BENZODIAZEPINES SCREEN URINE NEGATIVE (NEGATIVE); *COCAINE SCREEN URINE NEGATIVE (NEGATIVE); CANNABINOID URINE SCREEN NEGATIVE (NEGATIVE); OPIATES URINE SCREEN NEGATIVE (NEGATIVE)
[2018-08-15 13:27] LABS: METHADONE URINE SCREEN NEGATIVE (NEGATIVE); PHENCYCLIDINE URINE SCREEN NEGATIVE (NEGATIVE)
[2018-08-15 15:58] VITALS: BP 128/66
[2018-08-15] MEDS ORDERED: RIVAROXABAN 10 MG TABLET PO SCH ×2 (17:00→17:15)
[2018-08-15] MEDS ORDERED: FAMOTIDINE 20MG TABLET PO SCH ×2 (21:00→21:15)
[2018-08-15] MEDS ORDERED: PHENYTOIN SODIUM EXTENDED 100MG CAPSULE PO SCH ×2 (21:00→21:15)
== END 2018-08-15 16:37 | disposition home or self-care (01) ==
LOC: ER 07:01 → CANRESERV 19:01 → ENRESERV 19:01 → CANBEDREQ 20:16
DX: R07.9 Chest pain, unspecified (principal); I10 Essential (primary) hypertension; Z86.73 Personal history of transient ischemic attack (TIA), and cerebral infarction without residual deficits; Z86.711 Personal history of pulmonary embolism; Z98.890 Other specified postprocedural states; Z79.899 Other long term (current) drug therapy
CPT/HCPCS: 36415; 71045; 80305; 82550; 82553; 83880; 84484; 93005; 99284

== ENCOUNTER 2018-09-28 08:53 | Emergency (ER) | payer MEDICAID ==
[~2018-09-28] VITALS: Ht 165.1 cm; Wt 102.0 kg
[~2018-09-28 08:53] MED LIST changes: -ATOR10TA PO; -WARF-53 MT
[2018-09-28 12:16] LABS: BASOPHILS % 0.5 % (0.0-2.0); EOSINOPHILS % 2.6 % (0.0-5.0); HEMATOCRIT. 36.1 % (36.0-48.0); LYMPHOCYTES % 37.5 % (20.0-50.0); MEAN CORPUSCULAR HEMOGLOBIN 30.9 pg (28.0-32.0); MEAN PLATELET VOLUME 7.8 fl (7.4-10.4); MONOCYTES % 8.3 % (2.0-8.0); NEUTROPHILS % 51.1 % (40.0-76.0); PLATELET 310 x1000/uL (130-400); RED BLOOD CELL COUNT 3.88 mill/uL (4.2-5.4); RED CELL DISTRIBUTION WIDTH 13.9 % (11.6-14.6)
[2018-09-28 12:21] LABS: CHLORIDE 106 mEq/L (98-107)
[2018-09-28 12:25] LABS: D-DIMER 0.2 mg/L FEU (<0.50)
[2018-09-28] MEDS ORDERED: MAGNESIUM/ALUMINUM HYDROXIDE/SIMETHICONE 30ML UDC PO STA (12:29)
[2018-09-28] MEDS ORDERED: VISCOUS LIDOCAINE 2% 15 ML UDC PO STA (12:29)
[2018-09-28 13:08] VITALS: BP 137/63
== END 2018-09-28 13:35 | disposition home or self-care (01) ==
LOC: ER 09:02
DX: R07.89 Other chest pain (principal); Z86.718 Personal history of other venous thrombosis and embolism; Z79.01 Long term (current) use of anticoagulants; G40.909 Epilepsy, unspecified, not intractable, without status epilepticus; Z86.73 Personal history of transient ischemic attack (TIA), and cerebral infarction without residual deficits; Z79.899 Other long term (current) drug therapy
CPT/HCPCS: 36415; 71045; 83880; 84484; 85379; 93005; 99284

== ENCOUNTER 2019-04-16 07:24 | Emergency (ER) | payer MEDICAID ==
[~2019-04-16] VITALS: Ht 162.6 cm; Wt 103.0 kg
[2019-04-16 10:43] VITALS: BP 137/70
[2019-04-16] MEDS ORDERED: IBUPROFEN 400MG TABLET PO ONE (10:45)
== END 2019-04-16 11:04 | disposition home or self-care (01) ==
LOC: ER 07:32
DX: L03.115 Cellulitis of right lower limb (principal); Z79.899 Other long term (current) drug therapy; Z98.1 Arthrodesis status; Z98.890 Other specified postprocedural states; Z86.73 Personal history of transient ischemic attack (TIA), and cerebral infarction without residual deficits
CPT/HCPCS: 93971; 99284

== ENCOUNTER 2019-06-04 06:20 | Emergency (ER) | payer MEDICAID ==
[~2019-06-04] VITALS: Ht 165.1 cm; Wt 101.0 kg
[2019-06-04] MEDS ORDERED: METHYLPREDNISOLONE SOD SUCC 125 MG/2 ML VIAL IV ONE (07:30)
[2019-06-04] MEDS ORDERED: ALBUTEROL (0.083%) 2.5MG/3ML NEB HHN ONE (07:30)
[2019-06-04 08:14] LABS: BASOPHILS % 0.3 % (0.0-2.0); EOSINOPHILS % 2.8 % (0.0-5.0); HEMATOCRIT. 40.7 % (36.0-48.0); HEMOGLOBIN. 13.6 g/dL (12.0-16.0); LYMPHOCYTES % 21.7 % (20.0-50.0); MEAN CORPUSCULAR HEMOGLOBIN 31.5 pg (28.0-32.0); MEAN CORPUSCULAR VOLUME 93.9 fL (81.0-99.0); MEAN PLATELET VOLUME 7.5 fl (7.4-10.4); MONOCYTES % 7.6 % (2.0-8.0); NEUTROPHILS % 67.6 % (40.0-76.0); PLATELET 239 x1000/uL (130-400); RED BLOOD CELL COUNT 4.33 mill/uL (4.2-5.4); RED CELL DISTRIBUTION WIDTH 14.5 % (11.6-14.6)
[2019-06-04 08:18] LABS: CHLORIDE 110 mEq/L (98-107)
[2019-06-04 09:54] VITALS: BP 154/70
== END 2019-06-04 09:55 | disposition home or self-care (01) ==
LOC: ER 07:16
DX: J20.9 Acute bronchitis, unspecified (principal); J44.9 Chronic obstructive pulmonary disease, unspecified; I11.9 Hypertensive heart disease without heart failure; I51.9 Heart disease, unspecified; Z86.73 Personal history of transient ischemic attack (TIA), and cerebral infarction without residual deficits; Z87.891 Personal history of nicotine dependence; Z95.5 Presence of coronary angioplasty implant and graft; Z98.890 Other specified postprocedural states; Z79.899 Other long term (current) drug therapy
CPT/HCPCS: 36415; 71045; 80053; 83880; 84484; 85025; 93005; 94640; 96374; 99284; J2930; J7611; Z7610

== ENCOUNTER 2019-06-16 10:12 | Inpatient (IN) | payer MEDICAID ==
[~2019-06-16] VITALS: Ht 165.1 cm; Wt 106.6 kg
[2019-06-16] MEDS ORDERED: KETOROLAC 60MG/2ML VIAL IM ONE (11:00)
[2019-06-16] MEDS ORDERED: ACETAMINOPHEN 500MG TABLET PO ONE (13:15)
[2019-06-16] MEDS ORDERED: DEXAMETHASONE 10 MG/ML VIAL IV ONE (14:30)
[2019-06-16] MEDS ORDERED: CLONIDINE 0.1MG TABLET PO PRN (16:45)
[2019-06-16] MEDS ORDERED: IPRATROPIUM/ALBUTEROL 0.5-3(2.5)MG/3ML NEB HHN PRN (16:45)
[2019-06-16] MEDS ORDERED: GUAIFENESIN 200MG/10ML SUGAR FREE UDC PO PRN (16:45)
[2019-06-16] MEDS ORDERED: DIPHENHYDRAMINE 50MG/ML VIAL IV PRN (16:45)
[2019-06-16 16:50] LABS: BASOPHILS % 0.4 % (0.0-2.0); EOSINOPHILS % 0.8 % (0.0-5.0); HEMATOCRIT. 39.9 % (36.0-48.0); HEMOGLOBIN. 13.2 g/dL (12.0-16.0); LYMPHOCYTES % 18.6 % (20.0-50.0); MEAN CORPUSCULAR HEMOGLOBIN 30.8 pg (28.0-32.0); MEAN CORPUSCULAR VOLUME 93.3 fL (81.0-99.0); MEAN PLATELET VOLUME 7.5 fl (7.4-10.4); MONOCYTES % 5.1 % (2.0-8.0); NEUTROPHILS % 75.1 % (40.0-76.0); PLATELET 305 x1000/uL (130-400); RED BLOOD CELL COUNT 4.27 mill/uL (4.2-5.4); RED CELL DISTRIBUTION WIDTH 14.4 % (11.6-14.6)
[2019-06-16 16:55] LABS: CHLORIDE 110 mEq/L (98-107)
[2019-06-16 17:00] LABS: PHOSPHORUS 4.2 mg/dL (2.5-4.9)
[2019-06-16 18:10] VITALS: BP 105/54
[2019-06-16] MEDS: HYDROMORPHONE HCL/PF 2MG/ML CPJ IV PRN (19:08)
[2019-06-16 20:00] VITALS: BP 126/69
[2019-06-17] VITALS: BP 105/53
[2019-06-17] MEDS: DEXAMETHASONE 4MG/ML 1ML VIAL IV SCH ×5 (02:55→23:30)
[2019-06-17 04:00] VITALS: BP 139/70
[2019-06-17] MEDS: HYDROMORPHONE HCL/PF 2MG/ML CPJ IV PRN ×2 (08:36→18:21)
[2019-06-17] MEDS ORDERED: PHENYTOIN SODIUM EXTENDED 100MG CAPSULE PO NR (19:45)
[2019-06-17 20:00] VITALS: BP 128/60
[2019-06-17] MEDS: ATORVASTATIN CALCIUM 20MG TABLET PO SCH (20:51)
[2019-06-18] VITALS: BP 102/47
[2019-06-18 00:19] LABS: CLARITY URINE CLOUDY (CLEAR); COLOR URINE YELLOW (YELLOW); KETONES URINE TRACE (NEGATIVE); LEUKOCYTE ESTERASE URINE NEGATIVE (NEGATIVE); NITRITE URINE NEGATIVE (NEGATIVE); OCCULT BLOOD URINE NEGATIVE (NEGATIVE); PH URINE 5.5 (4.5-8.0); PROTEIN URINE NEGATIVE (NEGATIVE); UROBILINOGEN URINE 0.2 E.U./dL (0.2-1.0)
[2019-06-18 04:00] VITALS: BP 118/50
[2019-06-18 05:46] LABS: T4 FREE 1.15 ng/dL (0.76-1.46)
[2019-06-18] MEDS: OMEPRAZOLE 20MG CAPSULE EXTENDED RELEASE PO SCH (06:22)
[2019-06-18] MEDS: GABAPENTIN 300MG CAPSULE PO SCH ×2 (08:17→17:01)
[2019-06-18] MEDS: PHENYTOIN SODIUM EXTENDED 100MG CAPSULE PO SCH ×3 (08:17→21:10)
[2019-06-18] MEDS: HYDROMORPHONE HCL/PF 2MG/ML CPJ IV PRN (08:18)
[2019-06-18] MEDS: ACETAMINOPHEN 325MG TABLET PO PRN (10:37)
[2019-06-18 12:00] VITALS: BP 127/64
[2019-06-18] MEDS ORDERED: POLYETHYLENE GLYCOL 3350 (17GM) 1 DOSE PACK PO SCH (12:30)
[2019-06-18] MEDS ORDERED: DEXT 5%/0.45% NACL 1000ML 1,000 ML IV SCH (12:30)
[2019-06-18 16:00] VITALS: BP 137/67
[2019-06-18 20:00] VITALS: BP 151/67
[2019-06-18] MEDS: ATORVASTATIN CALCIUM 20MG TABLET PO SCH (21:10)
[2019-06-19] VITALS (79 sets, daily range): BP systolic 100–170; BP diastolic 54–108
[2019-06-19] MEDS: PHENYTOIN SODIUM EXTENDED 100MG CAPSULE PO SCH (06:37)
[2019-06-19] MEDS: OMEPRAZOLE 20MG CAPSULE EXTENDED RELEASE PO SCH (06:37)
[2019-06-19 06:52] LABS: BASOPHILS % 0.2 % (0.0-2.0); HEMATOCRIT. 34.8 % (36.0-48.0); HEMOGLOBIN. 11.9 g/dL (12.0-16.0); LYMPHOCYTES % 23.7 % (20.0-50.0); MEAN CORPUSCULAR HEMOGLOBIN 31.2 pg (28.0-32.0); MEAN CORPUSCULAR VOLUME 91.7 fL (81.0-99.0); MEAN PLATELET VOLUME 7.9 fl (7.4-10.4); MONOCYTES % 7.3 % (2.0-8.0); NEUTROPHILS % 68.8 % (40.0-76.0); PLATELET 293 x1000/uL (130-400); RED CELL DISTRIBUTION WIDTH 14.3 % (11.6-14.6)
[2019-06-19 06:59] LABS: CHLORIDE 108 mEq/L (98-107)
[2019-06-19] MEDS ORDERED: NORMAL SALINE 0.9% 10 ML SYR ONE (08:02)
[2019-06-19] MEDS ORDERED: BACITRACIN 15GM TUBE TOP ONE (08:02)
[2019-06-19] MEDS ORDERED: THROMBIN (BOVINE) 5000 UNITS/VIAL TOP ONE (08:02)
[2019-06-19] MEDS ORDERED: BACITRACIN 50,000 UNITS/VIAL ONE (08:03)
[2019-06-19] MEDS ORDERED: SODIUM CHLORIDE 0.9% 2,000 ML ONE (08:03)
[2019-06-19] MEDS ORDERED: LIDOCAINE HCL/EPINEPHRINE 1%-EPI 1:100,000 20 ML VIAL ONE (08:03)
[2019-06-19] MEDS ORDERED: SODIUM BICARBONATE 4% (2.4MEQ) 5ML VIAL IV ONE (08:42)
[2019-06-19] MEDS ORDERED: LIDOCAINE HCL 1% 20ML VIAL (Pyxis) INJ ONE (08:43)
[2019-06-19] MEDS: GABAPENTIN 300MG CAPSULE PO SCH ×2 (09:00→17:00)
[2019-06-19] MEDS ORDERED: ROCURONIUM BROMIDE 10MG/ML VIAL 5ML IV ONE ×2 (09:45→10:03)
[2019-06-19] MEDS ORDERED: FENTANYL CITRATE/PF 50MCG/ML 2ML VIAL ONE ×3 (09:45→11:20)
[2019-06-19] MEDS ORDERED: NEOSTIGMINE METHYLSULFATE 1MG/ML 10 ML VIAL ONE (09:45)
[2019-06-19] MEDS: DEXT 5%/LACTATED RINGERS 1,000 ML IV SCH ×3 (09:45→21:12)
[2019-06-19] MEDS ORDERED: PROPOFOL 200MG/20ML VIAL IV ONE (09:45)
[2019-06-19] MEDS ORDERED: MIDAZOLAM HCL 2 MG/2 ML VIAL ONE ×2 (09:45→11:19)
[2019-06-19] MEDS ORDERED: MORPHINE SULFATE 4 MG/ML CPJ (NOT FOR IM USE) IV PRN (09:45)
[2019-06-19] MEDS ORDERED: LIDOCAINE HCL/PF 1% 10 MG/ML 5ML VIAL ONE (09:45)
[2019-06-19] MEDS ORDERED: GLYCOPYRROLATE 0.2 MG/ML 2ML VIAL ONE (09:45)
[2019-06-19] MEDS ORDERED: SODIUM CHLORIDE 0.9% 10ML VIAL ONE (09:46)
[2019-06-19] MEDS ORDERED: EPHEDRINE SULFATE 50MG/ML VIAL ONE (09:46)
[2019-06-19] MEDS ORDERED: METOCLOPRAMIDE HCL 10MG/2ML VIAL ONE (09:46)
[2019-06-19] MEDS ORDERED: CEFAZOLIN SODIUM 1000MG/VIAL ONE (09:46)
[2019-06-19] MEDS ORDERED: SUCCINYLCHOLINE CHLORIDE 200MG/10ML IV ONE (09:46)
[2019-06-19] MEDS ORDERED: PHENYLEPHRINE HCL 10 MG/ML 1ML (IV VIAL) IV ONE (09:46)
[2019-06-19] MEDS ORDERED: ONDANSETRON HCL 4MG/2ML INJ ONE (09:46)
[2019-06-19] MEDS ORDERED: LABETALOL HCL 20MG/4ML CARPUJECT IV ONE (11:45)
[2019-06-19] MEDS: NICARDIPINE 100 MG in SODIUM CHLORIDE 0.9% 60 ML IV PRN (12:19)
[2019-06-19] MEDS: DEXAMETHASONE 4MG/ML 1ML VIAL IV SCH ×2 (12:20→18:15)
[2019-06-19 13:03] LABS: BG BASE EXCESS -1.4 mmol/L (-2.0-2.0); BG CARBOXYHEMOGLOBIN 0.3 % (0.5-1.5); BG DEOXYHEMOGLOBIN 1.8 % (0.0-5.0); BG FRACTION INSPIRED OXYGEN 50; BG HCO3 ACT 21.1 mmol/L (22.0-26.0); BG METHEMOGLOBIN 0.2 % (0.0-1.5); BG OXYGEN SATURATION 98.2 % (92.0-98.5); BG OXYHEMOGLOBIN 97.7 % (94.0-97.0); BG PCO2 29.1 mmHg (35.0-45.0); BG PH 7.478 (7.350-7.450); BG PO2 126.8 mmHg (75.0-100.0); BG SAMPLE SITE A-LINE; BG TIDAL VOLUME(mL) 500 mL; BG TOTAL HEMOGLOBIN 12.6 g/dL (12.0-18.0); BG VENT MODE VENT - A/C; BG VENT RATE 12 set
[2019-06-19] MEDS: PROPOFOL 10MG/ML 100ML 100 ML IV PRN ×2 (13:13→18:41)
[2019-06-19] MEDS ORDERED: CEFAZOLIN SODIUM 1000MG/VIAL IV SCH (14:00)
[2019-06-19] MEDS: ONDANSETRON HCL 4MG/2ML INJ IV PRN (14:33)
[2019-06-19] MEDS: FAMOTIDINE 20MG/2ML VIAL IV SCH (15:09)
[2019-06-19] MEDS: PHENYTOIN SODIUM 100MG/2ML VIAL IV SCH ×2 (15:44→21:12)
[2019-06-19] MEDS ORDERED: CEFAZOLIN 1000MG PREMIX 50 ML IV SCH (17:00)
[2019-06-19] MEDS: CEFAZOLIN 1000MG PREMIX 50 ML IV SCH (18:40)
[2019-06-19] MEDS: ATORVASTATIN CALCIUM 20MG TABLET PO SCH (20:12)
[2019-06-19] MEDS: IPRATROPIUM/ALBUTEROL 0.5-3(2.5)MG/3ML NEB HHN SCH (20:53)
[2019-06-20] VITALS (89 sets, daily range): BP systolic 94–227; BP diastolic 51–222
[2019-06-20] MEDS: DEXAMETHASONE 4MG/ML 1ML VIAL IV SCH ×4 (00:33→17:48)
[2019-06-20] MEDS: PROPOFOL 10MG/ML 100ML 100 ML IV PRN ×7 (01:16→21:23)
[2019-06-20] MEDS: CEFAZOLIN 1000MG PREMIX 50 ML IV SCH ×2 (01:44→10:45)
[2019-06-20] MEDS: IPRATROPIUM/ALBUTEROL 0.5-3(2.5)MG/3ML NEB HHN SCH ×4 (02:18→20:18)
[2019-06-20] MEDS: PHENYTOIN SODIUM 100MG/2ML VIAL IV SCH ×3 (05:15→21:22)
[2019-06-20 07:37] LABS: HEMATOCRIT. 41.6 % (36.0-48.0); HEMOGLOBIN. 13.9 g/dL (12.0-16.0); MEAN CORPUSCULAR HEMOGLOBIN 30.7 pg (28.0-32.0); MEAN CORPUSCULAR VOLUME 91.6 fL (81.0-99.0); MEAN PLATELET VOLUME 8.1 fl (7.4-10.4); PLATELET 324 x1000/uL (130-400); RED BLOOD CELL COUNT 4.55 mill/uL (4.2-5.4); RED CELL DISTRIBUTION WIDTH 14.3 % (11.6-14.6)
[2019-06-20 07:39] LABS: CHLORIDE 108 mEq/L (98-107)
[2019-06-20] MEDS: GABAPENTIN 300MG CAPSULE PO SCH ×2 (09:00→16:25)
[2019-06-20] MEDS: FAMOTIDINE 20MG/2ML VIAL IV SCH (09:31)
[2019-06-20] MEDS: DEXT 5%/LACTATED RINGERS 1,000 ML IV SCH ×3 (09:32→19:00)
[2019-06-20] MEDS: ONDANSETRON HCL 4MG/2ML INJ IV PRN (14:53)
[2019-06-20 15:27] LABS: BG BASE EXCESS 0.4 mmol/L (-2.0-2.0); BG CARBOXYHEMOGLOBIN 0.5 % (0.5-1.5); BG CPAP (cmH2O) 0 cm(H2O); BG DEOXYHEMOGLOBIN 1.5 % (0.0-5.0); BG HCO3 ACT 23.4 mmol/L (22.0-26.0); BG METHEMOGLOBIN 0.5 % (0.0-1.5); BG OXYGEN SATURATION 98.5 % (92.0-98.5); BG OXYHEMOGLOBIN 97.5 % (94.0-97.0); BG PCO2 32.9 mmHg (35.0-45.0); BG PH 7.469 (7.350-7.450); BG PO2 132.6 mmHg (75.0-100.0); BG SAMPLE SITE RIGHT RADIAL; BG TOTAL HEMOGLOBIN 14.7 g/dL (12.0-18.0); BG VENT MODE VENT - CPAP
[2019-06-20 16:13] LABS: PLATELET ESTIMATE NORMAL
[2019-06-20] MEDS: ATORVASTATIN CALCIUM 20MG TABLET PO SCH (20:28)
[2019-06-21] VITALS (87 sets, daily range): BP systolic 82–164; BP diastolic 37–99
[2019-06-21] MEDS: DEXAMETHASONE 4MG/ML 1ML VIAL IV SCH ×4 (00:05→17:27)
[2019-06-21] MEDS: PROPOFOL 10MG/ML 100ML 100 ML IV PRN ×3 (00:11→07:57)
[2019-06-21] MEDS: IPRATROPIUM/ALBUTEROL 0.5-3(2.5)MG/3ML NEB HHN SCH ×4 (01:47→19:58)
[2019-06-21 05:22] LABS: BASOPHILS % 0.1 % (0.0-2.0); HEMATOCRIT. 39.9 % (36.0-48.0); HEMOGLOBIN. 13.3 g/dL (12.0-16.0); MEAN CORPUSCULAR HEMOGLOBIN 30.5 pg (28.0-32.0); MEAN CORPUSCULAR VOLUME 91.6 fL (81.0-99.0); MEAN PLATELET VOLUME 7.9 fl (7.4-10.4); MONOCYTES % 7.3 % (2.0-8.0); NEUTROPHILS % 81.6 % (40.0-76.0); PLATELET 301 x1000/uL (130-400); RED BLOOD CELL COUNT 4.36 mill/uL (4.2-5.4); RED CELL DISTRIBUTION WIDTH 14.4 % (11.6-14.6)
[2019-06-21] MEDS: NICARDIPINE 100 MG in SODIUM CHLORIDE 0.9% 60 ML IV PRN (05:30)
[2019-06-21] MEDS: PHENYTOIN SODIUM 100MG/2ML VIAL IV SCH ×3 (05:30→21:55)
[2019-06-21 05:41] LABS: CHLORIDE 112 mEq/L (98-107)
[2019-06-21] MEDS: GABAPENTIN 300MG CAPSULE PO SCH ×2 (09:00→17:27)
[2019-06-21] MEDS: FAMOTIDINE 20MG/2ML VIAL IV SCH (09:11)
[2019-06-21 09:54] LABS: BG BASE EXCESS 1.2 mmol/L (-2.0-2.0); BG CARBOXYHEMOGLOBIN 0.9 % (0.5-1.5); BG DEOXYHEMOGLOBIN 1.7 % (0.0-5.0); BG FRACTION INSPIRED OXYGEN 35; BG HCO3 ACT 25.4 mmol/L (22.0-26.0); BG METHEMOGLOBIN 0.7 % (0.0-1.5); BG OXYGEN SATURATION 98.3 % (92.0-98.5); BG OXYHEMOGLOBIN 96.7 % (94.0-97.0); BG PCO2 38.8 mmHg (35.0-45.0); BG PH 7.434 (7.350-7.450); BG PO2 117.5 mmHg (75.0-100.0); BG PRESSURE SUPPORT 8; BG SAMPLE SITE RIGHT RADIAL; BG TOTAL HEMOGLOBIN 14.1 g/dL (12.0-18.0); BG VENT MODE VENT - CPAP
[2019-06-21] MEDS ORDERED: RACEPINEPHRINE 2.25% 0.5ML NEB VIAL HHN PRN (10:30)
[2019-06-21] MEDS: DEXT 5%/LACTATED RINGERS 1,000 ML IV SCH ×3 (12:54→21:56)
[2019-06-21] MEDS: ACETAMINOPHEN 325MG TABLET PO PRN (15:14)
[2019-06-21] MEDS: HYDROCODONE/ACETAMINOPHEN 5/325MG TABLET PO PRN (16:04)
[2019-06-21] MEDS: MAGNESIUM/ALUMINUM HYDROXIDE/SIMETHICONE 30ML UDC PO PRN (17:27)
[2019-06-21] MEDS: ATORVASTATIN CALCIUM 20MG TABLET PO SCH (21:55)
[2019-06-22] VITALS (34 sets, daily range): BP systolic 98–129; BP diastolic 53–74
[2019-06-22] MEDS: DEXAMETHASONE 4MG/ML 1ML VIAL IV SCH ×5 (01:48→23:30)
[2019-06-22] MEDS: IPRATROPIUM/ALBUTEROL 0.5-3(2.5)MG/3ML NEB HHN SCH ×2 (02:18→08:08)
[2019-06-22] MEDS: HYDROCODONE/ACETAMINOPHEN 5/325MG TABLET PO PRN (04:24)
[2019-06-22] MEDS: DEXT 5%/LACTATED RINGERS 1,000 ML IV SCH ×2 (05:05→18:20)
[2019-06-22 06:00] LABS: HEMATOCRIT. 36.6 % (36.0-48.0); HEMOGLOBIN. 12.2 g/dL (12.0-16.0); MEAN CORPUSCULAR VOLUME 92.5 fL (81.0-99.0); MEAN PLATELET VOLUME 7.8 fl (7.4-10.4); PLATELET 264 x1000/uL (130-400); RED BLOOD CELL COUNT 3.96 mill/uL (4.2-5.4); RED CELL DISTRIBUTION WIDTH 14.8 % (11.6-14.6)
[2019-06-22] MEDS ORDERED: PHENYTOIN SODIUM 100MG/2ML VIAL IV SCH (06:00)
[2019-06-22 06:06] LABS: CHLORIDE 107 mEq/L (98-107)
[2019-06-22 08:39] LABS: PLATELET ESTIMATE NORMAL
[2019-06-22] MEDS: GABAPENTIN 300MG CAPSULE PO SCH ×2 (09:12→18:20)
[2019-06-22] MEDS: FAMOTIDINE 20MG/2ML VIAL IV SCH (09:12)
[2019-06-22] MEDS: PHENYTOIN SODIUM 100MG/2ML VIAL IV SCH (21:38)
[2019-06-22] MEDS: ATORVASTATIN CALCIUM 20MG TABLET PO SCH (21:38)
[2019-06-22] MEDS: DOCUSATE SODIUM 100MG CAPSULE PO PRN (21:47)
[2019-06-22] MEDS: MAGNESIUM/ALUMINUM HYDROXIDE/SIMETHICONE 30ML UDC PO PRN (23:35)
[2019-06-23] VITALS (17 sets, daily range): BP systolic 103–160; BP diastolic 48–103
[2019-06-23] MEDS: DEXT 5%/LACTATED RINGERS 1,000 ML IV SCH ×3 (03:00→17:41)
[2019-06-23] MEDS: HYDROCODONE/ACETAMINOPHEN 5/325MG TABLET PO PRN (03:04)
[2019-06-23] MEDS: PHENYTOIN SODIUM 100MG/2ML VIAL IV SCH ×3 (05:18→22:02)
[2019-06-23] MEDS: DEXAMETHASONE 4MG/ML 1ML VIAL IV SCH ×3 (05:18→17:41)
[2019-06-23 06:42] LABS: HEMATOCRIT. 37.2 % (36.0-48.0); HEMOGLOBIN. 12.6 g/dL (12.0-16.0); LYMPHOCYTES % 12.5 % (20.0-50.0); MEAN CORPUSCULAR HEMOGLOBIN 31.2 pg (28.0-32.0); MEAN PLATELET VOLUME 7.8 fl (7.4-10.4); MONOCYTES % 6.8 % (2.0-8.0); NEUTROPHILS % 80.7 % (40.0-76.0); PLATELET 272 x1000/uL (130-400); RED BLOOD CELL COUNT 4.04 mill/uL (4.2-5.4); RED CELL DISTRIBUTION WIDTH 14.7 % (11.6-14.6)
[2019-06-23 08:46] LABS: CHLORIDE 104 mEq/L (98-107)
[2019-06-23] MEDS: FAMOTIDINE 20MG/2ML VIAL IV SCH (08:57)
[2019-06-23] MEDS: GABAPENTIN 300MG CAPSULE PO SCH ×2 (08:57→16:00)
[2019-06-23] MEDS: ATORVASTATIN CALCIUM 20MG TABLET PO SCH (22:02)
[2019-06-24] VITALS (12 sets, daily range): BP systolic 112–148; BP diastolic 62–88
[2019-06-24] MEDS: DEXAMETHASONE 4MG/ML 1ML VIAL IV SCH ×4 (01:25→17:23)
[2019-06-24] MEDS: DEXT 5%/LACTATED RINGERS 1,000 ML IV SCH ×2 (01:35→13:40)
[2019-06-24] MEDS: PHENYTOIN SODIUM 100MG/2ML VIAL IV SCH ×3 (05:46→21:34)
[2019-06-24] MEDS: HYDROCODONE/ACETAMINOPHEN 5/325MG TABLET PO PRN ×3 (05:46→22:08)
[2019-06-24 08:03] LABS: HEMATOCRIT. 38.2 % (36.0-48.0); HEMOGLOBIN. 12.8 g/dL (12.0-16.0); LYMPHOCYTES % 14.6 % (20.0-50.0); MEAN CORPUSCULAR HEMOGLOBIN 30.7 pg (28.0-32.0); MEAN CORPUSCULAR VOLUME 91.6 fL (81.0-99.0); MEAN PLATELET VOLUME 7.7 fl (7.4-10.4); MONOCYTES % 8.5 % (2.0-8.0); NEUTROPHILS % 76.9 % (40.0-76.0); PLATELET 259 x1000/uL (130-400); RED BLOOD CELL COUNT 4.17 mill/uL (4.2-5.4); RED CELL DISTRIBUTION WIDTH 14.4 % (11.6-14.6)
[2019-06-24 08:31] LABS: CHLORIDE 105 mEq/L (98-107)
[2019-06-24] MEDS: FAMOTIDINE 20MG/2ML VIAL IV SCH (09:05)
[2019-06-24] MEDS: GABAPENTIN 300MG CAPSULE PO SCH ×2 (09:05→17:23)
[2019-06-24] MEDS: ATORVASTATIN CALCIUM 20MG TABLET PO SCH (21:34)
[2019-06-25] VITALS (10 sets, daily range): BP systolic 93–148; BP diastolic 52–67
[2019-06-25] MEDS: DEXT 5%/LACTATED RINGERS 1,000 ML IV SCH ×2 (00:25→23:10)
[2019-06-25] MEDS: DEXAMETHASONE 4MG/ML 1ML VIAL IV SCH ×5 (00:29→23:26)
[2019-06-25] MEDS: HYDROCODONE/ACETAMINOPHEN 5/325MG TABLET PO PRN ×2 (03:12→12:09)
[2019-06-25] MEDS: PHENYTOIN SODIUM 100MG/2ML VIAL IV SCH ×3 (05:29→23:08)
[2019-06-25] MEDS ORDERED: LEVOTHYROXINE SODIUM 88MCG TABLET PO SCH (07:30)
[2019-06-25] MEDS: GABAPENTIN 300MG CAPSULE PO SCH ×2 (08:51→18:14)
[2019-06-25] MEDS: FAMOTIDINE 20MG/2ML VIAL IV SCH (08:51)
[2019-06-25] MEDS ORDERED: LACTULOSE 20G/30ML UDC PO NR (16:00)
[2019-06-25] MEDS: ATORVASTATIN CALCIUM 20MG TABLET PO SCH (20:50)
[2019-06-26] VITALS (7 sets, daily range): BP systolic 100–129; BP diastolic 54–80
[2019-06-26] MEDS: DEXT 5%/LACTATED RINGERS 1,000 ML IV SCH (03:23)
[2019-06-26] MEDS: PHENYTOIN SODIUM 100MG/2ML VIAL IV SCH ×3 (05:29→21:14)
[2019-06-26] MEDS: DEXAMETHASONE 4MG/ML 1ML VIAL IV SCH ×4 (05:29→23:04)
[2019-06-26] MEDS: GABAPENTIN 300MG CAPSULE PO SCH ×2 (08:49→17:07)
[2019-06-26] MEDS: FAMOTIDINE 20MG/2ML VIAL IV SCH (08:49)
[2019-06-26] MEDS: DOCUSATE SODIUM 100MG CAPSULE PO PRN (17:07)
[2019-06-26] MEDS ORDERED: MED4 MT (19:38)
[2019-06-26] MEDS ORDERED: HYDR-4001 PO (19:38)
[2019-06-26] MEDS: ATORVASTATIN CALCIUM 20MG TABLET PO SCH (21:14)
[2019-06-27] VITALS (7 sets, daily range): BP systolic 94–111; BP diastolic 60–67
[2019-06-27] MEDS: DEXAMETHASONE 4MG/ML 1ML VIAL IV SCH (05:14)
[2019-06-27] MEDS: PHENYTOIN SODIUM 100MG/2ML VIAL IV SCH (05:14)
[2019-06-27 06:37] LABS: CHLORIDE 103 mEq/L (98-107)
[2019-06-27 06:47] LABS: HEMATOCRIT. 38.8 % (36.0-48.0); HEMOGLOBIN. 13.2 g/dL (12.0-16.0); LYMPHOCYTES % 17.7 % (20.0-50.0); MEAN CORPUSCULAR HEMOGLOBIN 30.8 pg (28.0-32.0); MEAN CORPUSCULAR VOLUME 90.9 fL (81.0-99.0); MEAN PLATELET VOLUME 7.4 fl (7.4-10.4); MONOCYTES % 7.8 % (2.0-8.0); NEUTROPHILS % 74.5 % (40.0-76.0); PLATELET 282 x1000/uL (130-400); RED BLOOD CELL COUNT 4.27 mill/uL (4.2-5.4); RED CELL DISTRIBUTION WIDTH 13.8 % (11.6-14.6)
[2019-06-27] MEDS: FAMOTIDINE 20MG/2ML VIAL IV SCH (08:45)
[2019-06-27] MEDS: GABAPENTIN 300MG CAPSULE PO SCH (08:46)
== END 2019-06-27 12:05 | disposition home health service (06) | DRG 321 ==
LOC: ER 10:12 → 6EST 14:55 → ENRESERV 16:04 → 6EST 22:00 → MICUNO 06-19 11:30 → 5EST 06-22 11:30
PROVIDERS: ADMIT Internal Medicine; ATTEND Internal Medicine
PROC: 0RG10K0 Fusion of Cervical Vertebral Joint with Nonautologous Tissue Substitute, Anterior Approach, Anterior Column, Open Approach (ICD-10-PCS; principal; 2019-06-19)
PROC: 5A1945Z Respiratory Ventilation, 24-96 Consecutive Hours (ICD-10-PCS; 2019-06-19)
PROC: 02HV33Z Insertion of Infusion Device into Superior Vena Cava, Percutaneous Approach (ICD-10-PCS; 2019-06-19)
PROC: B5181ZA Fluoroscopy of Superior Vena Cava using Low Osmolar Contrast, Guidance (ICD-10-PCS; 2019-06-19)
PROC: B548ZZA Ultrasonography of Superior Vena Cava, Guidance (ICD-10-PCS; 2019-06-19)
PROC: 0RB30ZZ Excision of Cervical Vertebral Disc, Open Approach (ICD-10-PCS; 2019-06-19)
DX: M50.13 Cervical disc disorder with radiculopathy, cervicothoracic region (principal); G82.50 Quadriplegia, unspecified; G95.20 Unspecified cord compression; Z78.1 Physical restraint status; G40.909 Epilepsy, unspecified, not intractable, without status epilepticus; I10 Essential (primary) hypertension; I25.10 Atherosclerotic heart disease of native coronary artery without angina pectoris; K21.9 Gastro-esophageal reflux disease without esophagitis; Z95.5 Presence of coronary angioplasty implant and graft; E78.5 Hyperlipidemia, unspecified; M50.223 Other cervical disc displacement at C6-C7 level; D64.9 Anemia, unspecified; E03.9 Hypothyroidism, unspecified; E05.90 Thyrotoxicosis, unspecified without thyrotoxic crisis or storm; E21.3 Hyperparathyroidism, unspecified; E66.9 Obesity, unspecified; E78.00 Pure hypercholesterolemia, unspecified; I69.354 Hemiplegia and hemiparesis following cerebral infarction affecting left non-dominant side; Z98.891 History of uterine scar from previous surgery; J45.909 Unspecified asthma, uncomplicated; Z71.3 Dietary counseling and surveillance; J44.9 Chronic obstructive pulmonary disease, unspecified; Z68.39 Body mass index [BMI] 39.0-39.9, adult
CPT/HCPCS: 36415; 36573; 36600; 71045; 72040; 72141; 76000; 80048; 80061; 81003; 82375; 82805; 82962; 83735; 84100; 84439; 84443; 84478; 84481; 86850; 86900; 86920; 88304; 88311; 92610; 93970; 94002; 94003; 94640; 95925; 95926; 95928; 95929; 96372; 97116; 97162; 97164; 97166; 97530; 97535; 99285; A6261; C1713; C1725; C1758; C1893; J0330; J0690; J1100; J1165; J1170; J1200; J1885; J2250; J2270; J2370; J2405; J2704; J2710; J2765; J3010; J3490; J7030; J7050; J7121; J7620; L0172; A4315

== ENCOUNTER 2020-11-12 12:02 | Inpatient (IN) | payer MEDICAID ==
[~2020-11-12] VITALS: Ht 162.6 cm; Wt 112.2 kg
[~2020-11-12 12:02] MED LIST changes: -GABA-531 PO; +GABA-532 PO; +HYDR-4001 PO; +MED4 MT; +OMEP40CA12 MT; -OMEP40CA34 MT; +SIMV-43 PO; -SIMV20TA6 PO
[2020-11-12 13:55] LABS: CLARITY URINE CLEAR (CLEAR); COLOR URINE YELLOW (YELLOW); KETONES URINE NEGATIVE (NEGATIVE); LEUKOCYTE ESTERASE URINE NEGATIVE (NEGATIVE); NITRITE URINE NEGATIVE (NEGATIVE); OCCULT BLOOD URINE NEGATIVE (NEGATIVE); PROTEIN URINE NEGATIVE (NEGATIVE); SPECIFIC GRAVITY URINE 1.009 (1.005-1.030); UROBILINOGEN URINE 0.2 E.U./dL (0.2-1.0)
[2020-11-12 14:23] LABS: BASOPHILS % 0.5 % (0.0-2.0); EOSINOPHILS % 3.4 % (0.0-5.0); HEMATOCRIT. 35.4 % (36.0-48.0); HEMOGLOBIN. 11.9 g/dL (12.0-16.0); LYMPHOCYTES % 35.5 % (20.0-50.0); MEAN CORPUSCULAR HEMOGLOBIN 31.4 pg (28.0-32.0); MEAN CORPUSCULAR VOLUME 93.6 fL (81.0-99.0); MEAN PLATELET VOLUME 7.6 fl (7.4-10.4); MONOCYTES % 9.2 % (2.0-8.0); NEUTROPHILS % 51.4 % (40.0-76.0); PLATELET 266 x1000/uL (130-400); RED BLOOD CELL COUNT 3.78 mill/uL (4.2-5.4); RED CELL DISTRIBUTION WIDTH 13.7 % (11.6-14.6)
[2020-11-12 14:30] LABS: CHLORIDE 109 mEq/L (98-107)
[2020-11-12] MEDS ORDERED: ACETAMINOPHEN 325MG TABLET PO ONE (14:30)
[2020-11-12 14:38] LABS: PROTHROMBIN TIME 10.8 sec (9.6-11.0)
[2020-11-12] MEDS ORDERED: METOCLOPRAMIDE HCL 10MG/2ML VIAL IV ONE (16:45)
[2020-11-12] MEDS ORDERED: MAGNESIUM 1 G PREMIX 100 ML IV ONE (16:45)
[2020-11-12] MEDS ORDERED: KETOROLAC 15MG/ML VIAL IV ONE (19:15)
[2020-11-12] MEDS ORDERED: ONDANSETRON HCL 4MG/2ML INJ IV ONE (19:15)
[2020-11-12 22:45] VITALS: BP 141/58
[2020-11-12] MEDS: LEVETIRACETAM 500MG TABLET PO SCH (23:00)
[2020-11-12] MEDS ORDERED: KETOROLAC 15MG/ML VIAL IV PRN (23:15)
[2020-11-12] MEDS ORDERED: ACETAMINOPHEN 325MG TABLET PO PRN (23:15)
[2020-11-12] MEDS: ENOXAPARIN 30MG/0.3ML SYR SUBCUT SCH (23:53)
[2020-11-13] VITALS: BP 125/62
[2020-11-13 04:00] VITALS: BP 118/65
[2020-11-13 07:25] LABS: CHLORIDE 110 mEq/L (98-107)
[2020-11-13 07:36] LABS: BASOPHILS % 0.4 % (0.0-2.0); EOSINOPHILS % 3.8 % (0.0-5.0); HEMATOCRIT. 35.7 % (36.0-48.0); HEMOGLOBIN. 11.8 g/dL (12.0-16.0); LYMPHOCYTES % 39.3 % (20.0-50.0); MEAN CORPUSCULAR HEMOGLOBIN 31.1 pg (28.0-32.0); MEAN CORPUSCULAR VOLUME 93.8 fL (81.0-99.0); MONOCYTES % 9.8 % (2.0-8.0); NEUTROPHILS % 46.7 % (40.0-76.0); PLATELET 247 x1000/uL (130-400); RED BLOOD CELL COUNT 3.81 mill/uL (4.2-5.4); RED CELL DISTRIBUTION WIDTH 13.4 % (11.6-14.6)
[2020-11-13 07:48] LABS: LDL CHOLESTEROL 76 mg/dL (5-100)
[2020-11-13 07:50] VITALS: BP 144/66
[2020-11-13 07:50] LABS: HDL CHOLESTEROL 71 mg/dL (40-59)
[2020-11-13] MEDS ORDERED: METOPROLOL TARTRATE 50MG TABLET PO SCH (09:00)
[2020-11-13] MEDS ORDERED: ENOXAPARIN 40MG/0.4ML SYR SUBCUT SCH (09:00)
[2020-11-13] MEDS ORDERED: ASPIRIN 81MG TABLET PO SCH (09:00)
[2020-11-13] MEDS: ENOXAPARIN 30MG/0.3ML SYR SUBCUT SCH (09:28)
[2020-11-13] MEDS: LEVETIRACETAM 500MG TABLET PO SCH (09:28)
[2020-11-13 11:48] VITALS: BP 109/62
[2020-11-13 14:46] VITALS: BP 160/87
[2020-11-13 14:55] VITALS: BP 160/87
== END 2020-11-13 15:46 | disposition home or self-care (01) | DRG 54 ==
LOC: ER 12:02 → 6WST 20:28 → EDBEDREQ 20:30 → EDBEDREQTM 20:30 → ENRESERV 21:15
PROVIDERS: ADMIT Internal Medicine; ATTEND Internal Medicine
DX: R51.9 Headache, unspecified (principal); J44.9 Chronic obstructive pulmonary disease, unspecified; F14.90 Cocaine use, unspecified, uncomplicated; Z79.890 Hormone replacement therapy; Z79.899 Other long term (current) drug therapy; D53.9 Nutritional anemia, unspecified; I69.398 Other sequelae of cerebral infarction; I10 Essential (primary) hypertension; E66.9 Obesity, unspecified; Z68.41 Body mass index [BMI] 40.0-44.9, adult; G40.909 Epilepsy, unspecified, not intractable, without status epilepticus
CPT/HCPCS: 36415; 80048; 80053; 80061; 81003; 84443; 85025; 93005; 99285; J1650; J2765; J3475

== ENCOUNTER 2020-12-21 21:33 | Emergency (ER) | payer MEDICAID ==
[~2020-12-21] VITALS: Ht 162.6 cm; Wt 113.0 kg
[~2020-12-21 21:33] MED LIST changes: -ALBUTEROL INH; -MED4 MT; -QVAR INH
[2020-12-21 23:08] LABS: BASOPHILS % 0.3 % (0.0-2.0); EOSINOPHILS % 5.3 % (0.0-5.0); HEMATOCRIT. 34.8 % (36.0-48.0); HEMOGLOBIN. 12.1 g/dL (12.0-16.0); LYMPHOCYTES % 25.1 % (20.0-50.0); MEAN CORPUSCULAR HEMOGLOBIN 31.9 pg (28.0-32.0); MEAN PLATELET VOLUME 7.1 fl (7.4-10.4); MONOCYTES % 9.4 % (2.0-8.0); NEUTROPHILS % 59.9 % (40.0-76.0); PLATELET 272 x1000/uL (130-400); RED BLOOD CELL COUNT 3.78 mill/uL (4.2-5.4); RED CELL DISTRIBUTION WIDTH 13.6 % (11.6-14.6)
[2020-12-21 23:15] LABS: CHLORIDE 105 mEq/L (98-107)
[2020-12-21 23:20] LABS: PROTHROMBIN TIME 10.9 sec (9.6-11.0)
[2020-12-22 00:53] LABS: CLARITY URINE CLEAR (CLEAR); COLOR URINE YELLOW (YELLOW); KETONES URINE NEGATIVE (NEGATIVE); LEUKOCYTE ESTERASE URINE NEGATIVE (NEGATIVE); NITRITE URINE NEGATIVE (NEGATIVE); OCCULT BLOOD URINE NEGATIVE (NEGATIVE); PH URINE 6.5 (4.5-8.0); PROTEIN URINE NEGATIVE (NEGATIVE); SPECIFIC GRAVITY URINE 1.007 (1.005-1.030)
[2020-12-22] MEDS ORDERED: [UNRECOGNIZED DRUG - CODE] PO (01:20)
[2020-12-22 02:00] VITALS: BP 158/89
== END 2020-12-22 03:26 | disposition home or self-care (01) ==
LOC: ER 21:33
DX: R10.9 Unspecified abdominal pain (principal); J45.909 Unspecified asthma, uncomplicated; I10 Essential (primary) hypertension; Z86.73 Personal history of transient ischemic attack (TIA), and cerebral infarction without residual deficits; Z98.890 Other specified postprocedural states; Z79.899 Other long term (current) drug therapy
CPT/HCPCS: 36415; 71046; 74176; 80053; 81003; 85025; 93005; 99285

== ENCOUNTER 2021-05-29 14:50 | Emergency (ER) | payer MEDICAID ==
[~2021-05-29] VITALS: Ht 165.1 cm; Wt 115.0 kg
[~2021-05-29 14:50] MED LIST changes: -OMEP40CA12 MT; +OMEP40CA20 MT; +[UNRECOGNIZED DRUG - CODE] PO
[2021-05-29 16:12] LABS: BASOPHILS % 0.6 % (0.0-2.0); EOSINOPHILS % 4.7 % (0.0-5.0); HEMATOCRIT. 35.8 % (36.0-48.0); HEMOGLOBIN. 12.6 g/dL (12.0-16.0); LYMPHOCYTES % 28.1 % (20.0-50.0); MEAN CORPUSCULAR HEMOGLOBIN 32.9 pg (28.0-32.0); MEAN CORPUSCULAR VOLUME 93.7 fL (81.0-99.0); MEAN PLATELET VOLUME 7.1 fl (7.4-10.4); NEUTROPHILS % 59.6 % (40.0-76.0); PLATELET 237 x1000/uL (130-400); RED BLOOD CELL COUNT 3.82 mill/uL (4.2-5.4); RED CELL DISTRIBUTION WIDTH 14.2 % (11.6-14.6)
[2021-05-29 16:16] LABS: CHLORIDE 107 mEq/L (98-107)
[2021-05-29 16:19] LABS: PROTHROMBIN TIME 10.6 sec (9.6-11.0)
[2021-05-29 16:45] VITALS: BP 145/89
== END 2021-05-29 16:45 | disposition home or self-care (01) ==
LOC: ER 14:50
DX: R60.0 Localized edema (principal); Z86.718 Personal history of other venous thrombosis and embolism; Z86.711 Personal history of pulmonary embolism; Z79.01 Long term (current) use of anticoagulants; I10 Essential (primary) hypertension; G40.909 Epilepsy, unspecified, not intractable, without status epilepticus; J45.909 Unspecified asthma, uncomplicated; Z86.73 Personal history of transient ischemic attack (TIA), and cerebral infarction without residual deficits
CPT/HCPCS: 36415; 80053; 85025; 93971; 99284

== ENCOUNTER 2021-06-26 10:52 | Inpatient (IN) | payer MEDICAID, OTHER ==
[~2021-06-26] VITALS: Ht 167.6 cm; Wt 122.0 kg
[2021-06-26] MEDS ORDERED: IOHEXOL-350 100 ML BOTTLE ONE (12:33)
[2021-06-26 12:46] LABS: BASOPHILS % 0.2 % (0.0-2.0); EOSINOPHILS % 3.9 % (0.0-5.0); HEMATOCRIT. 38.5 % (36.0-48.0); HEMOGLOBIN. 12.8 g/dL (12.0-16.0); LYMPHOCYTES % 29.5 % (20.0-50.0); MEAN CORPUSCULAR HEMOGLOBIN 32.1 pg (28.0-32.0); MEAN CORPUSCULAR VOLUME 96.8 fL (81.0-99.0); MEAN PLATELET VOLUME 7.3 fl (7.4-10.4); NEUTROPHILS % 58.4 % (40.0-76.0); PLATELET 249 x1000/uL (130-400); RED BLOOD CELL COUNT 3.97 mill/uL (4.2-5.4); RED CELL DISTRIBUTION WIDTH 14.3 % (11.6-14.6)
[2021-06-26 12:54] LABS: CHLORIDE 109 mEq/L (98-107)
[2021-06-26 12:56] LABS: PROTHROMBIN TIME 10.9 sec (9.6-11.0)
[2021-06-26 13:00] LABS: ETHANOL BLOOD < 10 mg/dL
[2021-06-26] MEDS ORDERED: ASPIRIN 325MG EC TABLET PO ONE (13:00)
[2021-06-26 13:02] LABS: LDL CHOLESTEROL 82 mg/dL (5-100)
[2021-06-26] MEDS: ENOXAPARIN 30MG/0.3ML SYR SUBCUT SCH (18:56)
[2021-06-26] MEDS ORDERED: ATORVASTATIN CALCIUM 40MG TABLET PO SCH (21:00)
[2021-06-26 22:35] VITALS: BP 146/79
[2021-06-27] VITALS: BP 146/79
[2021-06-27 04:00] VITALS: BP 107/54
[2021-06-27] MEDS: ENOXAPARIN 30MG/0.3ML SYR SUBCUT SCH (05:15)
[2021-06-27] MEDS ORDERED: ACETAMINOPHEN 325MG TABLET PO PRN (06:45)
[2021-06-27 08:07] VITALS: BP 138/68
[2021-06-27] MEDS ORDERED: ASPIRIN 81MG TABLET PO SCH (09:00)
[2021-06-27] MEDS ORDERED: ALBU90AE2 IH (09:40)
[2021-06-27] MEDS ORDERED: APIX5TAB MT (09:40)
[2021-06-27 11:55] VITALS: BP 142/69
[2021-06-27 16:21] VITALS: BP 140/92
[2021-06-27 18:11] VITALS: BP 146/79
[2021-06-27] MEDS ORDERED: PHENYTOIN SODIUM EXTENDED 100MG CAPSULE PO SCH (21:00)
== END 2021-06-27 19:00 | disposition home health service (06) | DRG 53 ==
LOC: ER 10:52 → 6WST 12:52 → EDBEDREQ 12:59 → EDBEDREQSVC 12:59 → ENRESERV 21:47
PROVIDERS: ADMIT Internal Medicine; ATTEND Internal Medicine
DX: G40.909 Epilepsy, unspecified, not intractable, without status epilepticus (principal); E44.1 Mild protein-calorie malnutrition; E87.8 Other disorders of electrolyte and fluid balance, not elsewhere classified; R20.0 Anesthesia of skin; R47.81 Slurred speech; E03.9 Hypothyroidism, unspecified; E66.9 Obesity, unspecified; E78.00 Pure hypercholesterolemia, unspecified; I10 Essential (primary) hypertension; J44.9 Chronic obstructive pulmonary disease, unspecified; Z86.73 Personal history of transient ischemic attack (TIA), and cerebral infarction without residual deficits; Z79.01 Long term (current) use of anticoagulants; Z79.899 Other long term (current) drug therapy; Z98.1 Arthrodesis status; Z68.41 Body mass index [BMI] 40.0-44.9, adult
CPT/HCPCS: 36415; 70496; 70498; 70551; 71045; 80053; 80320; 83721; 84484; 85025; 93005; 93306; 93880; 97161; 97166; 99291; J1650; Q9967; G0480

== ENCOUNTER 2021-07-10 22:05 | Emergency (ER) | payer OTHER ==
[~2021-07-10] VITALS: Ht 162.6 cm; Wt 109.0 kg
[~2021-07-10 22:05] MED LIST changes: +ALBU90AE2 IH; +APIX5TAB MT
[2021-07-11] MEDS ORDERED: ACETAMINOPHEN WITH CODEINE 300/30MG TABLET PO ONE (01:45)
[2021-07-11 01:56] LABS: BASOPHILS % 0.3 % (0.0-2.0); EOSINOPHILS % 4.6 % (0.0-5.0); HEMATOCRIT. 41.4 % (36.0-48.0); HEMOGLOBIN. 13.7 g/dL (12.0-16.0); LYMPHOCYTES % 35.3 % (20.0-50.0); MEAN CORPUSCULAR HEMOGLOBIN 31.8 pg (28.0-32.0); MEAN CORPUSCULAR VOLUME 96.4 fL (81.0-99.0); MEAN PLATELET VOLUME 7.8 fl (7.4-10.4); MONOCYTES % 7.9 % (2.0-8.0); NEUTROPHILS % 51.9 % (40.0-76.0); PLATELET 315 x1000/uL (130-400); RED BLOOD CELL COUNT 4.29 mill/uL (4.2-5.4); RED CELL DISTRIBUTION WIDTH 14.3 % (11.6-14.6)
[2021-07-11 02:02] LABS: CHLORIDE 106 mEq/L (98-107)
[2021-07-11 02:33] LABS: PARTIAL THROMBOPLASTIN TIME 25.9 sec (23.4-31.0); PROTHROMBIN TIME 10.3 sec (9.6-11.0)
[2021-07-11] MEDS ORDERED: T3 PO (02:57)
[2021-07-11] MEDS ORDERED: T4 PO (03:06)
[2021-07-11 03:34] VITALS: BP 132/62
== END 2021-07-11 03:37 | disposition home or self-care (01) ==
LOC: ER 22:05
DX: R60.0 Localized edema (principal); I11.0 Hypertensive heart disease with heart failure; I50.9 Heart failure, unspecified; Z79.899 Other long term (current) drug therapy; Z86.59 Personal history of other mental and behavioral disorders; Z86.73 Personal history of transient ischemic attack (TIA), and cerebral infarction without residual deficits
CPT/HCPCS: 36415; 71045; 80053; 83880; 84484; 85025; 93005; 93970; 99285

== ENCOUNTER 2021-10-23 11:36 | Emergency (ER) | payer MEDICAID, OTHER ==
[~2021-10-23] VITALS: Ht 165.1 cm; Wt 112.0 kg
[~2021-10-23 11:36] MED LIST changes: +T3 PO; +T4 PO
[2021-10-23 12:10] LABS: BASOPHILS % 0.2 % (0.0-2.0); EOSINOPHILS % 2.7 % (0.0-5.0); HEMATOCRIT. 35.5 % (36.0-48.0); HEMOGLOBIN. 11.7 g/dL (12.0-16.0); LYMPHOCYTES % 29.3 % (20.0-50.0); MEAN CORPUSCULAR HEMOGLOBIN 31.2 pg (28.0-32.0); MEAN CORPUSCULAR VOLUME 94.7 fL (81.0-99.0); MEAN PLATELET VOLUME 7.4 fl (7.4-10.4); MONOCYTES % 7.1 % (2.0-8.0); NEUTROPHILS % 60.7 % (40.0-76.0); PLATELET 349 x1000/uL (130-400); RED BLOOD CELL COUNT 3.75 mill/uL (4.2-5.4); RED CELL DISTRIBUTION WIDTH 15.2 % (11.6-14.6)
[2021-10-23 12:16] LABS: CHLORIDE 108 mEq/L (98-107)
[2021-10-23 15:56] LABS: CLARITY URINE CLEAR (CLEAR); COLOR URINE YELLOW (YELLOW); KETONES URINE NEGATIVE (NEGATIVE); LEUKOCYTE ESTERASE URINE NEGATIVE (NEGATIVE); NITRITE URINE NEGATIVE (NEGATIVE); OCCULT BLOOD URINE NEGATIVE (NEGATIVE); PROTEIN URINE NEGATIVE (NEGATIVE); SPECIFIC GRAVITY URINE 1.015 (1.005-1.030)
[2021-10-23] MEDS ORDERED: ACETAMINOPHEN 325MG TABLET PO ONE (16:15)
[2021-10-23 17:49] VITALS: BP 14/73
[2021-10-23] MEDS ORDERED: TOPUD MT (18:26)
== END 2021-10-23 18:35 | disposition home or self-care (01) ==
LOC: ER 11:36
DX: M79.605 Pain in left leg (principal); M79.604 Pain in right leg; R60.0 Localized edema
CPT/HCPCS: 36415; 71045; 80053; 81003; 83880; 84484; 85025; 93970; 99285

== ENCOUNTER 2025-02-13 11:10 | Inpatient (IN) | payer MEDICARE, MEDICAID ==
[~2025-02-13] VITALS: Ht 165.1 cm; Wt 112.2 kg
[~2025-02-13 11:10] MED LIST changes: -ALBU90AE2 IH; +ALBU90AE3 IH; +GABA-1180 PO; -GABA-532 PO; +TOPUD MT
[2025-02-13 12:03] LABS: BASOPHILS % 0.3 % (0.0-2.0); EOSINOPHILS % 2.8 % (0.0-5.0); HEMATOCRIT. 36.5 % (36.0-48.0); HEMOGLOBIN. 12.3 g/dL (12.0-16.0); LYMPHOCYTES % 30.2 % (20.0-50.0); MEAN CORPUSCULAR HEMOGLOBIN 31.7 pg (28.0-32.0); MEAN CORPUSCULAR HGB CONC 33.6 g/dL (31.0-37.0); MEAN CORPUSCULAR VOLUME 94.5 fL (81.0-99.0); MEAN PLATELET VOLUME 7.6 fl (7.4-10.4); NEUTROPHILS % 58.7 % (40.0-76.0); PLATELET 277 x1000/uL (130-400); RED BLOOD CELL COUNT 3.86 mill/uL (4.2-5.4); RED CELL DISTRIBUTION WIDTH 14.1 % (11.6-14.6); WHITE BLOOD COUNT 9.9 x1000/uL (4.5-11.0)
[2025-02-13 12:56] LABS: CHLORIDE 109 mEq/L (98-107); POTASSIUM 3.6 mEq/L (3.5-5.1); SODIUM 142 mEq/L (136-145)
[2025-02-13 12:57] LABS: CALCIUM 9.3 mg/dL (8.7-10.4); CARBON DIOXIDE 26 mEq/L (21-32)
[2025-02-13] MEDS: ASPIRIN 325MG TABLET PO ONE (12:58)
[2025-02-13 13:02] LABS: CREATININE 0.9 mg/dL (0.6-1.0); GLUCOSE 90 mg/dL (70-105); UREA NITROGEN BLOOD 10 mg/dL (9-23)
[2025-02-13 13:03] LABS: TROPONIN I HIGH SENSITIVITY 5 ng/L (3.0-34)
[2025-02-13 15:58] LABS: TROPONIN I HIGH SENSITIVITY 8 ng/L (3.0-34)
[2025-02-13 16:00] VITALS: BP 133/80; PULSE 68; RESP 16; TEMP 36.8; O2SAT 92
[2025-02-13] MEDS: FUROSEMIDE 40MG/4ML VIAL IVP SCH (16:10)
[2025-02-13 16:25] VITALS: BP 133/80; PULSE 59; RESP 21; TEMP 36.9
[2025-02-13] MEDS: ENOXAPARIN 120MG/0.8ML SYR SUBCUT SCH (17:40)
[2025-02-13 17:41] LABS: PROTHROMBIN TIME 10.8 sec (9.6-11.0)
[2025-02-13 20:00] VITALS: BP 130/66; PULSE 75; RESP 19; TEMP 36.6; O2SAT 94
[2025-02-13] MEDS: ATORVASTATIN CALCIUM 40MG TABLET PO SCH (21:31)
[2025-02-14] VITALS: BP 111/51; PULSE 68; RESP 15; TEMP 36.7; O2SAT 94
[2025-02-14] MEDS ORDERED: NALOXONE HCL 0.4MG/ML VIAL IV PRN (02:45)
[2025-02-14 04:00] VITALS: BP 97/54; PULSE 66; RESP 15; TEMP 36.6; O2SAT 95
[2025-02-14] MEDS: ENOXAPARIN 120MG/0.8ML SYR SUBCUT SCH (06:35)
[2025-02-14 07:32] LABS: CARBON DIOXIDE 30 mEq/L (21-32); CHLORIDE 107 mEq/L (98-107); POTASSIUM 3.9 mEq/L (3.5-5.1); SODIUM 143 mEq/L (136-145)
[2025-02-14 07:33] LABS: CALCIUM 9.4 mg/dL (8.7-10.4)
[2025-02-14 07:37] LABS: CREATININE 0.9 mg/dL (0.6-1.0); GLUCOSE 92 mg/dL (70-105)
[2025-02-14 07:38] LABS: UREA NITROGEN BLOOD 9 mg/dL (9-23)
[2025-02-14 07:39] LABS: TROPONIN I HIGH SENSITIVITY 5 ng/L (3.0-34)
[2025-02-14 08:00] VITALS: BP 113/72; PULSE 73; RESP 15; TEMP 36.7; O2SAT 98
[2025-02-14] MEDS: EMPAGLIFLOZIN 10MG TABLET PO SCH (09:00)
[2025-02-14] MEDS: FUROSEMIDE 40MG/4ML VIAL IVP SCH (10:32)
[2025-02-14] MEDS: ASPIRIN 81MG TABLET PO SCH (10:32)
[2025-02-14 12:00] VITALS: BP 101/63; PULSE 90; RESP 18; TEMP 36.7; O2SAT 99
[2025-02-14 16:00] VITALS: BP 120/57; PULSE 78; RESP 18; TEMP 36.8; O2SAT 99
[2025-02-14] MEDS: HYDROCODONE/ACETAMINOPHEN 10/325MG TABLET PO PRN (17:11)
[2025-02-14] MEDS: ACETAMINOPHEN 325MG TABLET PO PRN (17:21)
[2025-02-14 20:00] VITALS: BP 93/58; PULSE 68; RESP 13; TEMP 36.8; O2SAT 95
[2025-02-15] VITALS: BP 96/64; PULSE 72; RESP 14; TEMP 36.8; O2SAT 94
[2025-02-15 04:00] VITALS: BP 97/68; PULSE 70; RESP 16; TEMP 36.7; O2SAT 98
[2025-02-15 06:42] LABS: BASOPHILS % 0.4 % (0.0-2.0); EOSINOPHILS % 5.1 % (0.0-5.0); HEMATOCRIT. 37.9 % (36.0-48.0); HEMOGLOBIN. 12.3 g/dL (12.0-16.0); LYMPHOCYTES % 41.7 % (20.0-50.0); MEAN CORPUSCULAR HEMOGLOBIN 31.4 pg (28.0-32.0); MEAN CORPUSCULAR HGB CONC 32.5 g/dL (31.0-37.0); MEAN CORPUSCULAR VOLUME 96.5 fL (81.0-99.0); MEAN PLATELET VOLUME 8.2 fl (7.4-10.4); MONOCYTES % 7.5 % (2.0-8.0); NEUTROPHILS % 45.3 % (40.0-76.0); PLATELET 169 x1000/uL (130-400); RED BLOOD CELL COUNT 3.93 mill/uL (4.2-5.4); RED CELL DISTRIBUTION WIDTH 14.1 % (11.6-14.6); WHITE BLOOD COUNT 7.3 x1000/uL (4.5-11.0)
[2025-02-15 08:01] VITALS: BP 110/68; PULSE 86; RESP 21; TEMP 36.5; O2SAT 100
[2025-02-15 10:13] LABS: CHLORIDE 104 mEq/L (98-107); POTASSIUM 3.9 mEq/L (3.5-5.1); SODIUM 139 mEq/L (136-145)
[2025-02-15 10:14] LABS: CARBON DIOXIDE 24 mEq/L (21-32)
[2025-02-15 10:15] LABS: CALCIUM 8.9 mg/dL (8.7-10.4)
[2025-02-15 10:20] LABS: CREATININE 0.9 mg/dL (0.6-1.0); GLUCOSE 81 mg/dL (70-105); UREA NITROGEN BLOOD 11 mg/dL (9-23)
[2025-02-15] MEDS ORDERED: IODIXANOL 320MG/ML 100 ML BOTTLE IV ONE (11:16)
[2025-02-15] MEDS ORDERED: LIDOCAINE HCL 1% 10 MG/ML 10ML VIAL ONE (11:16)
[2025-02-15] MEDS ORDERED: HEPARIN 1000 UNITS/ML 10ML ONE (11:16)
[2025-02-15] MEDS ORDERED: VERAPAMIL HCL 2.5 MG/1 ML 2ML VIAL IV ONE (11:17)
[2025-02-15] MEDS ORDERED: METHYLPREDNISOLONE SOD SUCC 125MG/2ML (ACT-O-VIAL) ONE (11:17)
[2025-02-15] MEDS ORDERED: DIPHENHYDRAMINE 50MG/ML VIAL ONE (11:17)
[2025-02-15 12:00] VITALS: BP 105/70; PULSE 78; RESP 16; TEMP 36.8; O2SAT 98
[2025-02-15] MEDS ORDERED: MIDAZOLAM HCL 2 MG/2 ML VIAL ONE (12:18)
[2025-02-15] MEDS ORDERED: FENTANYL CITRATE/PF 50MCG/ML 2ML VIAL ONE (12:19)
[2025-02-15] MEDS ORDERED: ACETAMINOPHEN 325MG TABLET PO PRN (13:30)
[2025-02-15] MEDS ORDERED: ATROPINE SULFATE 1MG/10ML SYR IV PRN (13:30)
[2025-02-15 16:00] VITALS: BP 98/58; PULSE 68; RESP 13; TEMP 36.8; O2SAT 96
[2025-02-15] MEDS: ENOXAPARIN 120MG/0.8ML SYR SUBCUT SCH (18:00)
[2025-02-15 20:00] VITALS: BP 100/63; PULSE 82; RESP 16; TEMP 36.8; O2SAT 96
[2025-02-16] VITALS: BP 121/61; PULSE 71; RESP 15; TEMP 36.7; O2SAT 95
[2025-02-16 04:00] VITALS: BP 129/65; PULSE 67; RESP 16; TEMP 36.6; O2SAT 96
[2025-02-16 07:02] LABS: BASOPHILS % 0.1 % (0.0-2.0); HEMATOCRIT. 36.8 % (36.0-48.0); HEMOGLOBIN. 12.5 g/dL (12.0-16.0); LYMPHOCYTES % 15.6 % (20.0-50.0); MEAN CORPUSCULAR HEMOGLOBIN 31.6 pg (28.0-32.0); MEAN CORPUSCULAR HGB CONC 33.9 g/dL (31.0-37.0); MEAN CORPUSCULAR VOLUME 93.2 fL (81.0-99.0); MEAN PLATELET VOLUME 8.1 fl (7.4-10.4); MONOCYTES % 4.1 % (2.0-8.0); NEUTROPHILS % 80.2 % (40.0-76.0); PLATELET 283 x1000/uL (130-400); RED BLOOD CELL COUNT 3.95 mill/uL (4.2-5.4); RED CELL DISTRIBUTION WIDTH 13.8 % (11.6-14.6); WHITE BLOOD COUNT 9.1 x1000/uL (4.5-11.0)
[2025-02-16 07:05] LABS: CARBON DIOXIDE 26 mEq/L (21-32); CHLORIDE 104 mEq/L (98-107); POTASSIUM 3.8 mEq/L (3.5-5.1); SODIUM 140 mEq/L (136-145)
[2025-02-16 07:06] LABS: CALCIUM 9.5 mg/dL (8.7-10.4)
[2025-02-16 07:10] LABS: CREATININE 0.9 mg/dL (0.6-1.0); GLUCOSE 115 mg/dL (70-105)
[2025-02-16 07:11] LABS: UREA NITROGEN BLOOD 14 mg/dL (9-23)
[2025-02-16 08:00] VITALS: BP 138/69; PULSE 76; RESP 19; TEMP 36.7; O2SAT 95
[2025-02-16 09:35] VITALS: BP 138/69; PULSE 76; TEMP 98; O2SAT 95
== END 2025-02-16 10:07 | disposition home health service (06) | DRG 286 ==
LOC: ER 11:23 → 3WST 12:14 → ENRESERV 12:31
PROVIDERS: ADMIT Internal Medicine; ATTEND Internal Medicine
PROC: 4A023N7 Measurement of Cardiac Sampling and Pressure, Left Heart, Percutaneous Approach (ICD-10-PCS; principal; 2025-02-15)
PROC: B211YZZ Fluoroscopy of Multiple Coronary Arteries using Other Contrast (ICD-10-PCS; 2025-02-15)
DX: I11.0 Hypertensive heart disease with heart failure (principal); I50.33 Acute on chronic diastolic (congestive) heart failure; I25.110 Atherosclerotic heart disease of native coronary artery with unstable angina pectoris; J44.9 Chronic obstructive pulmonary disease, unspecified; I25.2 Old myocardial infarction; Z86.73 Personal history of transient ischemic attack (TIA), and cerebral infarction without residual deficits; Z86.711 Personal history of pulmonary embolism; Z95.5 Presence of coronary angioplasty implant and graft
CPT/HCPCS: 36415; 71045; 80048; 84484; 85025; 93005; 93306; 93458; 93970; 99285; A4606; C1769; C1887; C1893; J1200; J1644; J1650; J1940; J2003; J2250; J2919; J3010; J3490; Q9967